=== PATIENT | female | born 1960 | race Caucasian/White ===

== ENCOUNTER 2019-06-11 17:26 | Inpatient (IN) ==
[2019-06-11] MEDS ORDERED: LORazepam 2 MG/1 ML VIAL IV STA (18:29)
[2019-06-11] MEDS ORDERED: THIAMINE INJ 100 MG, FOLIC ACID INJ 1 MG, MAGNESIUM SULF INJ 2 GM, MULTIVITAMIN INJ 10 ... IV ONE (18:29)
[2019-06-11] MEDS ORDERED: LORazepam 2 MG/1 ML VIAL ONE (18:46)
[2019-06-11 18:57] LABS: ABG HCO3 14.3 MMOL/L (20-26); ABG Oxygen Saturation 96.4 % (95-100); ABG PCO2 44.3 MM HG (35-48); ABG TCO2 14.6 MMOL/L (23-27)
[2019-06-11 19:00] LABS: ABG PH 7.154 (7.35-7.45)
[2019-06-11] MEDS ORDERED: SODIUM BICARBONATE 50 MEQ/50 ML VIAL IV STA (19:01)
[2019-06-11] MEDS ORDERED: DEXTROSE 50% 25 GM/50 ML SYRINGE IV ONE ×2 (20:01→21:58)
[2019-06-11 20:04] LABS: Basophils % 0.2 % (0.0-0.8); Eosinophils # 0.1 10*3/uL (0.0-0.87); Hematocrit 29.5 VOL% (35.7-47.0); Hemoglobin 9.5 GM/DL (12.0-16.0); Immature Granulocytes % 0.5 %; Immature Granulocytes Absolute 0.06 #; Lymphocytes # 1.9 10*3/uL (1.4-4.0); Lymphocytes % 15.5 % (21.3-54.2); Mean Corpuscular HGB Conc 32.2 GM/DL (32-36); Mean Corpuscular Volume 85.3 FL (87-102); Mean Platelet Volume 12.2 FL (9.6-12.0); Neutrophils % 69.8 % (38.7-73.9); Platelet Count 308 T/CUMM (130-400); Red Blood Count 3.46 MC/CUMM (3.8-5.5); Red Cell Distribution Width 16.6 % (9.3-17.3); White Blood Count 12.4 T/CUMM (4-12)
[2019-06-11] MEDS ORDERED: NOREPINEPHRINE 4 MG/4 ML VIAL IV ONE (20:23)
[2019-06-11] MEDS: NOREPINEPHRINE 8 MG in SODIUM CHLORIDE 0.9% 242 ML IV PRN (20:41)
[2019-06-11] MEDS ORDERED: DEXTROSE 50% 25 GM/50 ML VIAL IV STA ×2 (20:43→22:13)
[2019-06-11] MEDS ORDERED: VECURONIUM 10 MG VIAL IV STA (20:45)
[2019-06-11] MEDS ORDERED: SODIUM CHLORIDE 0.9% 1,000 ML IV STA ×2 (20:45→21:00)
[2019-06-11] MEDS ORDERED: PIPERACILLIN/TAZOBACTAM 3,375 MG in SODIUM CHLORIDE 0.9% 100 ML IV STA (20:45)
[2019-06-11] MEDS ORDERED: ETOMIDATE 20 MG/10 ML VIAL IV STA (20:45)
[2019-06-11 20:55] LABS: Alanine Aminotransferase < 9 U/L (13-56); Albumin 2.2 G/DL (3.4-5.0); Alkaline Phosphatase 60 U/L (45-117); Aspartate Amino Transferase 9 U/L (0-37); Blood Urea Nitrogen 77 MG/DL (7-18); Calcium 7.5 MG/DL (8.5-10.1); Estimated Glom Filtration Rate 8 ML/MIN; Glucose 194 MG/DL (74-106); Osmolality,Calculated 278.5 MOS/KG (273-304); Total Protein 6.1 G/DL (6.4-8.3); Troponin I < 0.015 NG/ML (0.00-0.045)
[2019-06-11 20:55] LABS: Barbiturates Screen,Urine Negative (Negative); Benzodiazepines Screen,Urine Negative (Negative); Cannabinoid Screen,Urine Positive (Negative); Opiate Screen,Urine Positive (Negative); Phencyclidine Screen,Urine Negative (Negative)
[2019-06-11 21:03] LABS: Apearance,Urine CLOUDY (Clear); Bacteria,Urine Few /HPF (Few); Bilirubin,Urine Negative (Negative); Blood, Urine Moderate mg/dL (Negative); Glucose,Urine (UA) Negative (Negative); Ketones,Urine 5 mg/dL (Negative); Nitrite,Urine Negative (Negative); Protein,Urine 100 MG/DL; RBC,Urine 10 /HPF (0-4); Squamous Epithelial Cell,Urine Occasional /HPF (0-10); Urine Color Amber (Yellow); Urine Specific Gravity 1.019 (1.001-1.035); Urine Urobilinogen < 2.0 EU/DL (0.2-1.0); WBC,Urine 5 /HPF (0-6)
[2019-06-11 21:25] LABS: ABG Base Excess -8.7 MMOL/L (-2.5-2.5); ABG HCO3 17.4 MMOL/L (20-26); ABG Oxygen Saturation 99.1 % (95-100); ABG PCO2 30.3 MM HG (35-48); ABG PH 7.336 (7.35-7.45)
[2019-06-11 21:58] LABS: Alanine Aminotransferase < 9 U/L (13-56); Albumin 2.4 G/DL (3.4-5.0); Alkaline Phosphatase 76 U/L (45-117); Aspartate Amino Transferase 10 U/L (0-37); Blood Urea Nitrogen 81 MG/DL (7-18); Estimated Glom Filtration Rate 7 ML/MIN; Glucose 94 MG/DL (74-106); Osmolality,Calculated 278.2 MOS/KG (273-304); Total Protein 6.9 G/DL (6.4-8.3)
[2019-06-11] MEDS ORDERED: ALBUTEROL 2.5 MG/3 ML NEB RESP TX PRN (22:20)
[2019-06-11] MEDS ORDERED: ONDANSETRON 4 MG/2 ML VIAL IV PRN (22:20)
[2019-06-11] MEDS ORDERED: PROMETHAZINE 25 MG/1 ML VIAL IM PRN (22:20)
[2019-06-11] MEDS ORDERED: DEXTROSE 50% 25 GM/50 ML VIAL IV PRN (22:27)
[2019-06-11] MEDS ORDERED: GLUCAGON 1 MG VIAL IM PRN (22:27)
[2019-06-11] MEDS: SODIUM CHLORIDE 0.9% 1,000 ML IV SCH (22:30)
[2019-06-11] MEDS: DEXTROSE 10% 1,000 ML IV SCH (22:30)
[2019-06-11 23:16] LABS: Alanine Aminotransferase < 9 U/L (13-56); Albumin 2.3 G/DL (3.4-5.0); Alkaline Phosphatase 65 U/L (45-117); Aspartate Amino Transferase 7 U/L (0-37); Blood Urea Nitrogen 73 MG/DL (7-18); Calcium 7.7 MG/DL (8.5-10.1); Estimated Glom Filtration Rate 8 ML/MIN; Glucose 144 MG/DL (74-106); Osmolality,Calculated 281.1 MOS/KG (273-304); Total Protein 6.3 G/DL (6.4-8.3)
[2019-06-12] MEDS ORDERED: NOREPINEPHRINE 4 MG/4 ML VIAL IV ONE ×2 (00:27→00:29)
[2019-06-12] MEDS: NOREPINEPHRINE 8 MG in SODIUM CHLORIDE 0.9% 242 ML IV PRN ×2 (00:32→17:38)
[2019-06-12] MEDS ORDERED: LORazepam 2 MG/1 ML VIAL IV ONE (01:03)
[2019-06-12] MEDS ORDERED: LORazepam 2 MG/1 ML VIAL ONE (01:08)
[2019-06-12] MEDS: ALBUTEROL/IPRATROPIUM 3 ML NEB RESP TX SCH ×4 (01:12→19:40)
[2019-06-12 03:23] LABS: ABG Base Excess -9.1 MMOL/L (-2.5-2.5); ABG HCO3 17.1 MMOL/L (20-26); ABG Oxygen Saturation 99.3 % (95-100); ABG PCO2 23.9 MM HG (35-48); ABG PH 7.393 (7.35-7.45); ABG TCO2 13.3 MMOL/L (23-27); Allen Test Negative; Pt O2 Delivery Device Ventilator
[2019-06-12] MEDS ORDERED: PHENTOLAMINE 5 MG VIAL INFILTRAT ONE (03:30)
[2019-06-12 04:47] LABS: Basophils % 0.3 % (0.0-0.8); Eosinophils # 0.1 10*3/uL (0.0-0.87); Eosinophils % 1.1 % (0.00-10.9); Hematocrit 29.2 VOL% (35.7-47.0); Hemoglobin 9.7 GM/DL (12.0-16.0); Immature Granulocytes % 0.4 %; Immature Granulocytes Absolute 0.04 #; Lymphocytes # 1.2 10*3/uL (1.4-4.0); Mean Corpuscular HGB Conc 33.2 GM/DL (32-36); Mean Corpuscular Volume 84.4 FL (87-102); Mean Platelet Volume 12.4 FL (9.6-12.0); Neutrophils % 72.2 % (38.7-73.9); Platelet Count 261 T/CUMM (130-400); Red Blood Count 3.46 MC/CUMM (3.8-5.5); Red Cell Distribution Width 16.2 % (9.3-17.3); White Blood Count 9.4 T/CUMM (4-12)
[2019-06-12 05:15] LABS: Albumin 2.2 G/DL (3.4-5.0); Bilirubin,Total 2.1 MG/DL (0.2-1.0); Calcium 7.9 MG/DL (8.5-10.1); Osmolality,Calculated 278.9 MOS/KG (273-304); Total Protein 6.3 G/DL (6.4-8.3)
[2019-06-12] MEDS ORDERED: TERBUTALINE 1 MG/1 ML VIAL SUBCUT ONE ×2 (05:56→06:26)
[2019-06-12] MEDS ORDERED: PIPERACILLIN/TAZOBACTAM 3,375 MG in SODIUM CHLORIDE 0.9% 100 ML IV SCH (06:30)
[2019-06-12] MEDS: DEXTROSE 10% 1,000 ML IV SCH ×2 (07:14→20:05)
[2019-06-12] MEDS: SODIUM CHLORIDE 0.9% 1,000 ML IV SCH ×2 (09:02→17:04)
[2019-06-12] MEDS: HYDROCORTISONE 100 MG VIAL IV SCH ×3 (09:03→20:04)
[2019-06-12] MEDS: PANTOPRAZOLE 40 MG VIAL IV SCH (09:05)
[2019-06-12] MEDS ORDERED: LORazepam 2 MG/1 ML VIAL IV STA (13:00)
[2019-06-12] MEDS ORDERED: PHENYTOIN INJ 1,000 MG in SODIUM CHLORIDE 0.9% 100 ML IV ONE (14:00)
[2019-06-12] MEDS: DIAZEPAM 10 MG/2 ML SYRINGE IV SCH ×2 (16:03→20:04)
[2019-06-12] MEDS: SODIUM BICARB INJ 100 MEQ in SODIUM CHLORIDE 0.45% 1,000 ML IV SCH (17:05)
[2019-06-12] MEDS: PIPERACILLIN/TAZOBACTAM 3,375 MG in SODIUM CHLORIDE 0.9% 100 ML IV SCH (17:11)
[2019-06-12] MEDS ORDERED: INFLUENZA VIRUS VACCINE 0.5 ML SYRINGE IM ONE (18:00)
[2019-06-12] MEDS ORDERED: PHENYTOIN 100 MG/2 ML VIAL IV SCH (21:00)
[2019-06-13] MEDS: ALBUTEROL/IPRATROPIUM 3 ML NEB RESP TX SCH ×4 (01:18→19:33)
[2019-06-13] MEDS: SODIUM BICARB INJ 100 MEQ in SODIUM CHLORIDE 0.45% 1,000 ML IV SCH ×3 (02:12→20:25)
[2019-06-13] MEDS: HYDROCORTISONE 100 MG VIAL IV SCH ×4 (02:13→17:31)
[2019-06-13] MEDS: DIAZEPAM 10 MG/2 ML SYRINGE IV SCH ×4 (04:07→20:24)
[2019-06-13 05:02] LABS: ABG Base Excess -2.4 MMOL/L (-2.5-2.5); ABG HCO3 18.7 MMOL/L (20-26); ABG Oxygen Saturation 98.1 % (95-100); ABG PCO2 21.9 MM HG (35-48); ABG PO2 113.7 MM HG (80-95); ABG TCO2 19.4 MMOL/L (23-27)
[2019-06-13 05:14] LABS: Hematocrit 23.5 VOL% (35.7-47.0); Hemoglobin 8.2 GM/DL (12.0-16.0); Immature Granulocytes % 1.5 %; Immature Granulocytes Absolute 0.07 #; Lymphocytes # 0.5 10*3/uL (1.4-4.0); Lymphocytes % 9.6 % (21.3-54.2); Mean Corpuscular HGB Conc 34.9 GM/DL (32-36); Mean Corpuscular Volume 79.9 FL (87-102); Mean Platelet Volume 12.2 FL (9.6-12.0); Monocytes % 5.8 % (1.7-12.7); Neutrophils % 83.1 % (38.7-73.9); Platelet Count 241 T/CUMM (130-400); Red Blood Count 2.94 MC/CUMM (3.8-5.5); Red Cell Distribution Width 15.8 % (9.3-17.3); White Blood Count 4.8 T/CUMM (4-12)
[2019-06-13 05:24] LABS: Calcium 8.6 MG/DL (8.5-10.1)
[2019-06-13] MEDS ORDERED: DEXTROSE 50% 25 GM/50 ML VIAL IV PRN (08:35)
[2019-06-13] MEDS ORDERED: GLUCAGON 1 MG VIAL IM PRN (08:35)
[2019-06-13] MEDS: PANTOPRAZOLE 40 MG VIAL IV SCH (09:18)
[2019-06-13] MEDS: POTASSIUM CHLORIDE 20 MEQ/15 ML UDCUP PER TUBE SCH ×3 (09:19→17:31)
[2019-06-13] MEDS: PIPERACILLIN/TAZOBACTAM 3,375 MG in SODIUM CHLORIDE 0.9% 100 ML IV SCH ×3 (09:30→20:24)
[2019-06-13] MEDS: DEXTROSE 10% 1,000 ML IV SCH (17:25)
[2019-06-14] MEDS: ALBUTEROL/IPRATROPIUM 3 ML NEB RESP TX SCH ×4 (00:18→19:45)
[2019-06-14] MEDS: SODIUM BICARB INJ 100 MEQ in SODIUM CHLORIDE 0.45% 1,000 ML IV SCH ×2 (00:31→13:58)
[2019-06-14] MEDS: HYDROCORTISONE 100 MG VIAL IV SCH (01:35)
[2019-06-14] MEDS: DIAZEPAM 10 MG/2 ML SYRINGE IV SCH (03:11)
[2019-06-14 04:11] LABS: ABG Base Excess 3.8 MMOL/L (-2.5-2.5); ABG HCO3 27.7 MMOL/L (20-26); ABG Oxygen Saturation 94.5 % (95-100); ABG PCO2 37.7 MM HG (35-48); ABG PH 7.471 (7.35-7.45); ABG PO2 70.8 MM HG (80-95); ABG TCO2 25.3 MMOL/L (23-27)
[2019-06-14 04:37] LABS: Basophils % 0.1 % (0.0-0.8); Hematocrit 25.9 VOL% (35.7-47.0); Hemoglobin 8.7 GM/DL (12.0-16.0); Immature Granulocytes % 0.8 %; Immature Granulocytes Absolute 0.06 #; Lymphocytes # 0.9 10*3/uL (1.4-4.0); Lymphocytes % 11.9 % (21.3-54.2); Mean Corpuscular HGB Conc 33.6 GM/DL (32-36); Mean Corpuscular Volume 82.5 FL (87-102); Mean Platelet Volume 11.6 FL (9.6-12.0); Monocytes % 10.5 % (1.7-12.7); Neutrophils % 76.7 % (38.7-73.9); Platelet Count 252 T/CUMM (130-400); Red Blood Count 3.14 MC/CUMM (3.8-5.5); Red Cell Distribution Width 15.6 % (9.3-17.3); White Blood Count 7.4 T/CUMM (4-12)
[2019-06-14 05:04] LABS: Calcium 8.7 MG/DL (8.5-10.1); Osmolality,Calculated 294.5 MOS/KG (273-304)
[2019-06-14] MEDS ORDERED: MAGNESIUM SULF RIDER 2 GM in PREMIX 1 EACH IV ONE (08:08)
[2019-06-14] MEDS ORDERED: NIFEdipine 10 MG CAPSULE PO PRN (08:10)
[2019-06-14] MEDS ORDERED: INSULIN LISPRO 100 UNIT/ML ONE (09:15)
[2019-06-14] MEDS: PREGABALIN 100 MG CAPSULE PO SCH ×2 (09:54→20:05)
[2019-06-14] MEDS: CYANOCOBALAMIN 500 MCG TABLET PO SCH (09:54)
[2019-06-14] MEDS: amLODIPine 10 MG TABLET PO SCH (09:55)
[2019-06-14] MEDS: PANTOPRAZOLE 40 MG TABLET PO SCH (09:56)
[2019-06-14] MEDS: INSULIN LISPRO 100 UNIT/ML SUBCUT SCH ×4 (09:58→23:51)
[2019-06-14] MEDS: PIPERACILLIN/TAZOBACTAM 3,375 MG in SODIUM CHLORIDE 0.9% 100 ML IV SCH ×2 (10:00→20:15)
[2019-06-14] MEDS: SODIUM CHLORIDE 0.9% 1,000 ML IV SCH ×2 (10:00→20:04)
[2019-06-14] MEDS: ROSUVASTATIN 20 MG TABLET PO SCH (20:05)
[2019-06-14] MEDS: HYDROCORTISONE 10 MG TABLET PO SCH (20:05)
[2019-06-15 06:11] LABS: Basophils % 0.2 % (0.0-0.8); Eosinophils % 0.4 % (0.00-10.9); Hematocrit 26.9 VOL% (35.7-47.0); Hemoglobin 8.6 GM/DL (12.0-16.0); Immature Granulocytes % 1.8 %; Immature Granulocytes Absolute 0.15 #; Lymphocytes # 1.5 10*3/uL (1.4-4.0); Lymphocytes % 17.4 % (21.3-54.2); Mean Corpuscular Volume 85.9 FL (87-102); Mean Platelet Volume 12.1 FL (9.6-12.0); Neutrophils % 69.2 % (38.7-73.9); Platelet Count 270 T/CUMM (130-400); Red Blood Count 3.13 MC/CUMM (3.8-5.5); Red Cell Distribution Width 16.1 % (9.3-17.3); White Blood Count 8.4 T/CUMM (4-12)
[2019-06-15 06:23] LABS: Calcium 8.6 MG/DL (8.5-10.1); Osmolality,Calculated 285.7 MOS/KG (273-304)
[2019-06-15] MEDS: SODIUM CHLORIDE 0.9% 1,000 ML IV SCH ×3 (06:27→23:55)
[2019-06-15] MEDS: ALBUTEROL/IPRATROPIUM 3 ML NEB RESP TX SCH ×2 (07:32→19:37)
[2019-06-15] MEDS: INSULIN LISPRO 100 UNIT/ML SUBCUT SCH ×4 (08:23→21:02)
[2019-06-15] MEDS: PIPERACILLIN/TAZOBACTAM 3,375 MG in SODIUM CHLORIDE 0.9% 100 ML IV SCH ×2 (08:28→21:01)
[2019-06-15] MEDS: HYDROCORTISONE 10 MG TABLET PO SCH ×2 (08:29→21:01)
[2019-06-15] MEDS: PANTOPRAZOLE 40 MG TABLET PO SCH (08:29)
[2019-06-15] MEDS: CYANOCOBALAMIN 500 MCG TABLET PO SCH (08:29)
[2019-06-15] MEDS: PREGABALIN 100 MG CAPSULE PO SCH ×2 (08:30→21:02)
[2019-06-15] MEDS: amLODIPine 10 MG TABLET PO SCH (08:30)
[2019-06-15] MEDS: ROSUVASTATIN 20 MG TABLET PO SCH (21:02)
[2019-06-16 04:47] LABS: Basophils % 0.2 % (0.0-0.8); Eosinophils % 0.4 % (0.00-10.9); Hematocrit 26.8 VOL% (35.7-47.0); Hemoglobin 8.5 GM/DL (12.0-16.0); Immature Granulocytes Absolute 0.39 #; Lymphocytes # 1.7 10*3/uL (1.4-4.0); Lymphocytes % 16.8 % (21.3-54.2); Mean Corpuscular HGB Conc 31.7 GM/DL (32-36); Mean Corpuscular Volume 86.2 FL (87-102); Mean Platelet Volume 11.9 FL (9.6-12.0); Monocytes % 9.4 % (1.7-12.7); Neutrophils % 69.2 % (38.7-73.9); Platelet Count 269 T/CUMM (130-400); Red Blood Count 3.11 MC/CUMM (3.8-5.5); Red Cell Distribution Width 15.9 % (9.3-17.3); White Blood Count 9.9 T/CUMM (4-12)
[2019-06-16 05:55] LABS: Calcium 7.9 MG/DL (8.5-10.1); Osmolality,Calculated 288.3 MOS/KG (273-304)
[2019-06-16] MEDS: ALBUTEROL/IPRATROPIUM 3 ML NEB RESP TX SCH (08:16)
[2019-06-16] MEDS ORDERED: MAGNESIUM SULF RIDER 2 GM in PREMIX 1 EACH IV PRN (08:32)
[2019-06-16] MEDS ORDERED: MAGNESIUM SULF RIDER 4 GM in PREMIX 1 EACH IV PRN (08:32)
[2019-06-16] MEDS: INSULIN LISPRO 100 UNIT/ML SUBCUT SCH ×2 (08:40→12:53)
[2019-06-16] MEDS ORDERED: diphenhydrAMINE CAP 25 MG CAPSULE PO ONE (08:56)
[2019-06-16] MEDS: HYDROCORTISONE 10 MG TABLET PO SCH (09:22)
[2019-06-16] MEDS: PREGABALIN 100 MG CAPSULE PO SCH (09:22)
[2019-06-16] MEDS: amLODIPine 10 MG TABLET PO SCH (09:23)
[2019-06-16] MEDS: PANTOPRAZOLE 40 MG TABLET PO SCH (09:23)
[2019-06-16] MEDS: CYANOCOBALAMIN 500 MCG TABLET PO SCH (09:23)
[2019-06-16] MEDS: SODIUM CHLORIDE 0.9% 1,000 ML IV SCH (09:24)
[2019-06-16] MEDS: PIPERACILLIN/TAZOBACTAM 3,375 MG in SODIUM CHLORIDE 0.9% 100 ML IV SCH (09:24)
[2019-06-16] MEDS: POTASSIUM CHLORIDE 20 MEQ TABLET PO PRN ×3 (09:25→13:15)
[2019-06-16] MEDS ORDERED: levETIRAcetam 250 MG TABLET PO SCH (12:44)
[2019-06-16 16:03] VITALS: BP 149/68
[2019-06-16] MEDS ORDERED: MAGNESIUM OXIDE 400 MG TABLET PO SCH (21:00)
[2019-06-17] MEDS ORDERED: POTASSIUM CHLORIDE 20 MEQ TABLET PO SCH (09:00)
== END 2019-06-16 16:44 | disposition home or self-care (01) | DRG 775 ==
LOC: EDUNIT# → EDBD → N.ED 17:26 → N.EDINP 22:20 → SUATTDRO 22:20 → N.CC 23:41 → N.5E 06-14 14:44
PROVIDERS: ADMIT Internal Medicine; ATTEND Hospitalist

== ENCOUNTER 2019-11-16 06:36 | Inpatient (IN) ==
[2019-11-16] MEDS ORDERED: methylPREDNISolone SOD SUC 40 MG/1 ML VIAL IV STA (07:04)
[2019-11-16] MEDS ORDERED: LEVOFLOXACIN INJ 750 MG in PREMIX 1 EACH IV STA (07:08)
[2019-11-16] MEDS ORDERED: ALBUTEROL 2.5 MG/3 ML NEB RESP TX STA (07:12)
[2019-11-16 07:28] LABS: Basophils % 0.2 % (0.0-0.8); Eosinophils % 0.2 % (0.00-10.9); Hematocrit 37.7 VOL% (35.7-47.0); Immature Granulocytes % 0.4 %; Immature Granulocytes Absolute 0.02 #; Lymphocytes # 0.8 10*3/uL (1.4-4.0); Mean Corpuscular HGB Conc 29.7 GM/DL (32-36); Mean Corpuscular Volume 80.7 FL (87-102); Mean Platelet Volume 12.2 FL (9.6-12.0); Monocytes % 2.6 % (1.7-12.7); Neutrophils % 81.6 % (38.7-73.9); Platelet Count 262 T/CUMM (130-400); Red Blood Count 4.67 MC/CUMM (3.8-5.5); Red Cell Distribution Width 21.6 % (9.3-17.3); White Blood Count 5.1 T/CUMM (4-12)
[2019-11-16] MEDS ORDERED: VANCOMYCIN INJ 1,250 MG in SODIUM CHLORIDE 0.9% 250 ML IV STA (07:36)
[2019-11-16 07:40] LABS: PT Patient Result 11.2 SECS (9.8-11.9)
[2019-11-16 07:48] LABS: Hemoglobin 11.2 GM/DL (12.0-16.0)
[2019-11-16] MEDS ORDERED: SODIUM CHLORIDE 0.9% 500 ML IV STA (07:54)
[2019-11-16 08:03] LABS: Alanine Aminotransferase 29 U/L (13-56); Albumin 2.6 G/DL (3.4-5.0); Alkaline Phosphatase 95 U/L (45-117); Aspartate Amino Transferase 83 U/L (0-37); Blood Urea Nitrogen 8 MG/DL (7-18); Calcium 8.7 MG/DL (8.5-10.1); Estimated Glom Filtration Rate 109 ML/MIN; Glucose 107 MG/DL (74-106); Osmolality,Calculated 274.5 MOS/KG (273-304); Total Protein 7.9 G/DL (6.4-8.3)
[2019-11-16 08:31] LABS: Band Neutrophils 1 % (0-10); Hypochromasia 1+; Lymphocytes 18 % (20-55); Platelet Estimate Adequate; Segmented Neutrophils 79 % (50-85); Total Cells Counted 100
[2019-11-16 08:47] LABS: Sedimentation Rate-Westergren 66 MM/HR (0-30)
[2019-11-16 09:10] LABS: Barbiturates Screen,Urine Negative (Negative); Benzodiazepines Screen,Urine Negative (Negative); Cannabinoid Screen,Urine Negative (Negative); Opiate Screen,Urine Positive (Negative); Phencyclidine Screen,Urine Negative (Negative)
[2019-11-16] MEDS ORDERED: ALBUTEROL 2.5 MG/3 ML NEB RESP TX PRN (09:11)
[2019-11-16] MEDS ORDERED: ONDANSETRON 4 MG/2 ML VIAL IV PRN (09:11)
[2019-11-16 09:21] LABS: ABG Base Excess -1.8 MMOL/L (-2.5-2.5); ABG HCO3 22.7 MMOL/L (20-26); ABG Oxygen Saturation 87.3 % (95-100); ABG PCO2 35.8 MM HG (35-48); ABG PH 7.405 (7.35-7.45); ABG PO2 59.7 MM HG (80-95); ABG TCO2 20.4 MMOL/L (23-27)
[2019-11-16] MEDS: cefTRIAXone 2,000 MG in SYRINGE 1 EACH IV SCH ×2 (11:02→23:56)
[2019-11-16] MEDS: PANTOPRAZOLE 40 MG TABLET PO SCH (11:02)
[2019-11-16] MEDS ORDERED: ENOXAPARIN 120 MG/0.8 ML SYRINGE SUBCUT ONE (14:11)
[2019-11-16] MEDS ORDERED: DEXAMETHASONE INJ 6 MG in SODIUM CHLORIDE 0.9% 50 ML IV SCH (14:30)
[2019-11-16] MEDS: amLODIPine 10 MG TABLET PO SCH (15:26)
[2019-11-16] MEDS: DEXAMETHASONE 4 MG/1 ML VIAL IV SCH (15:26)
[2019-11-16] MEDS: PREGABALIN 100 MG CAPSULE PO SCH (20:14)
[2019-11-16] MEDS: MAGNESIUM OXIDE 400 MG TABLET PO SCH (20:14)
[2019-11-16] MEDS: DIAZEPAM 5 MG TABLET PO PRN (20:14)
[2019-11-16] MEDS ORDERED: LORazepam 2 MG/1 ML VIAL IV ONE (20:16)
[2019-11-17] MEDS: DIAZEPAM 5 MG TABLET PO PRN (01:02)
[2019-11-17] MEDS ORDERED: ETOMIDATE 20 MG/10 ML VIAL IV ONE ×2 (03:50→04:00)
[2019-11-17] MEDS ORDERED: ROCURONIUM 100 MG/10 ML VIAL IV ONE ×2 (03:51→04:01)
[2019-11-17] MEDS ORDERED: METOPROLOL TARTRATE 5 MG/5 ML VIAL IV ONE ×2 (04:53→04:54)
[2019-11-17 04:58] LABS: ABG HCO3 21.7 MMOL/L (20-26); ABG Oxygen Saturation 88.8 % (95-100); ABG PH 7.248 (7.35-7.45); ABG PO2 71.7 MM HG (80-95)
[2019-11-17 05:49] LABS: Basophils % 0.1 % (0.0-0.8); Hematocrit 37.5 VOL% (35.7-47.0); Hemoglobin 11.2 GM/DL (12.0-16.0); Immature Granulocytes % 0.7 %; Immature Granulocytes Absolute 0.08 #; Mean Corpuscular HGB Conc 29.9 GM/DL (32-36); Mean Corpuscular Volume 81.2 FL (87-102); Monocytes % 6.3 % (1.7-12.7); NRBC # 0.03 10*3/uL; Neutrophils % 83.9 % (38.7-73.9); Platelet Count 339 T/CUMM (130-400); Red Blood Count 4.62 MC/CUMM (3.8-5.5); Red Cell Distribution Width 21.3 % (9.3-17.3); White Blood Count 11.2 T/CUMM (4-12)
[2019-11-17] MEDS: MIDAZOLAM 100 MG in SODIUM CHLORIDE 0.9% 80 ML IV PRN ×2 (05:50→16:11)
[2019-11-17 06:18] LABS: Hypochromasia 1+; Platelet Estimate Adequate
[2019-11-17 06:20] LABS: Osmolality,Calculated 279.5 MOS/KG (273-304)
[2019-11-17 06:35] LABS: ABG Base Excess -2.7 MMOL/L (-2.5-2.5); ABG HCO3 22.8 MMOL/L (20-26); ABG Oxygen Saturation 93.8 % (95-100); ABG PH 7.352 (7.35-7.45); ABG PO2 80.2 MM HG (80-95); ABG TCO2 24.1 MMOL/L (23-27)
[2019-11-17] MEDS: chlordiazePOXIDE 25 MG CAPSULE PO SCH ×4 (08:10→20:44)
[2019-11-17] MEDS: MAGNESIUM OXIDE 400 MG TABLET PO SCH ×2 (08:11→20:14)
[2019-11-17] MEDS: DEXAMETHASONE 4 MG/1 ML VIAL IV SCH (08:11)
[2019-11-17] MEDS: amLODIPine 10 MG TABLET PO SCH (08:11)
[2019-11-17] MEDS: PREGABALIN 100 MG CAPSULE PO SCH ×2 (08:11→20:14)
[2019-11-17] MEDS: PANTOPRAZOLE 40 MG TABLET PO SCH (08:12)
[2019-11-17] MEDS ORDERED: chlordiazePOXIDE 10 MG CAPSULE PO SCH (09:00)
[2019-11-17] MEDS ORDERED: DIGOXIN 0.5 MG/2 ML AMP IV ONE ×2 (09:06→10:30)
[2019-11-17] MEDS: cefTRIAXone 2,000 MG in SYRINGE 1 EACH IV SCH (10:08)
[2019-11-17] MEDS: ENOXAPARIN 100 MG/ML SYRINGE SUBCUT SCH ×2 (13:42→21:34)
[2019-11-17] MEDS: INSULIN LISPRO 100 UNIT/ML SUBCUT SCH ×2 (13:42→18:15)
[2019-11-17] MEDS: fentaNYL INJ 1,250 MCG in SODIUM CHLORIDE 0.9% 225 ML IV PRN (13:43)
[2019-11-18] MEDS: INSULIN LISPRO 100 UNIT/ML SUBCUT SCH ×4 (00:37→19:53)
[2019-11-18] MEDS: MIDAZOLAM 100 MG in SODIUM CHLORIDE 0.9% 80 ML IV PRN ×2 (00:49→20:02)
[2019-11-18] MEDS: fentaNYL INJ 1,250 MCG in SODIUM CHLORIDE 0.9% 225 ML IV PRN ×2 (00:50→12:35)
[2019-11-18] MEDS: cefTRIAXone 2,000 MG in SYRINGE 1 EACH IV SCH ×2 (01:12→13:50)
[2019-11-18 03:52] LABS: ABG Base Excess 0.7 MMOL/L (-2.5-2.5); ABG HCO3 25.1 MMOL/L (20-26); ABG Oxygen Saturation 99.3 % (95-100); ABG PCO2 37.7 MM HG (35-48); ABG PH 7.427 (7.35-7.45); ABG TCO2 22.8 MMOL/L (23-27)
[2019-11-18 05:14] LABS: Immature Granulocytes % 0.3 %; Immature Granulocytes Absolute 0.01 #; Lymphocytes # 0.6 10*3/uL (1.4-4.0); Lymphocytes % 16.4 % (21.3-54.2); Mean Corpuscular Volume 79.2 FL (87-102); Mean Platelet Volume 12.9 FL (9.6-12.0); Monocytes % 7.8 % (1.7-12.7); Neutrophils % 75.5 % (38.7-73.9); Red Cell Distribution Width 20.2 % (9.3-17.3)
[2019-11-18 05:29] LABS: Calcium 8.8 MG/DL (8.5-10.1); Osmolality,Calculated 282.5 MOS/KG (273-304)
[2019-11-18 05:39] LABS: Platelet Count 248 T/CUMM (130-400); Red Blood Count 3.66 MC/CUMM (3.8-5.5); White Blood Count 3.7 T/CUMM (4-12)
[2019-11-18 05:57] LABS: Band Neutrophils 1 % (0-10); Hypochromasia 1+; Lymphocytes 10 % (20-55); Microcytosis 1+; Nucleated Red Blood Cells 1 (0-5); Segmented Neutrophils 84 % (50-85); Total Cells Counted 100
[2019-11-18 05:58] LABS: Platelet Estimate Normal
[2019-11-18] MEDS: amLODIPine 10 MG TABLET PO SCH (08:54)
[2019-11-18] MEDS: PREGABALIN 100 MG CAPSULE PO SCH ×2 (08:54→21:47)
[2019-11-18] MEDS: PANTOPRAZOLE 40 MG TABLET PO SCH ×2 (08:54→08:58)
[2019-11-18] MEDS: MAGNESIUM OXIDE 400 MG TABLET PO SCH ×2 (08:54→21:47)
[2019-11-18] MEDS: DEXAMETHASONE 4 MG/1 ML VIAL IV SCH (08:54)
[2019-11-18] MEDS: chlordiazePOXIDE 25 MG CAPSULE PO SCH ×4 (08:59→21:47)
[2019-11-18] MEDS: ENOXAPARIN 100 MG/ML SYRINGE SUBCUT SCH ×2 (08:59→21:47)
[2019-11-18] MEDS: PANTOPRAZOLE 40 MG VIAL IV SCH (12:15)
[2019-11-18] MEDS ORDERED: SODIUM CHLORIDE 0.9% 1,000 ML IV PRN (14:53)
[2019-11-19] MEDS: cefTRIAXone 2,000 MG in SYRINGE 1 EACH IV SCH ×3 (00:29→22:19)
[2019-11-19] MEDS: INSULIN LISPRO 100 UNIT/ML SUBCUT SCH ×4 (01:22→17:40)
[2019-11-19] MEDS: fentaNYL INJ 1,250 MCG in SODIUM CHLORIDE 0.9% 225 ML IV PRN (02:29)
[2019-11-19 03:58] LABS: Hematocrit 29.6 VOL% (35.7-47.0); Hemoglobin 8.8 GM/DL (12.0-16.0); Immature Granulocytes % 0.7 %; Immature Granulocytes Absolute 0.03 #; Lymphocytes # 0.6 10*3/uL (1.4-4.0); Lymphocytes % 13.5 % (21.3-54.2); Mean Corpuscular HGB Conc 29.7 GM/DL (32-36); Mean Corpuscular Volume 80.2 FL (87-102); Mean Platelet Volume 11.6 FL (9.6-12.0); Monocytes % 10.3 % (1.7-12.7); NRBC # 0.02 10*3/uL; Neutrophils % 75.5 % (38.7-73.9); Platelet Count 248 T/CUMM (130-400); Red Blood Count 3.69 MC/CUMM (3.8-5.5); Red Cell Distribution Width 20.1 % (9.3-17.3); White Blood Count 4.3 T/CUMM (4-12)
[2019-11-19 04:29] LABS: Albumin 2.4 G/DL (3.4-5.0); Bilirubin,Total 0.4 MG/DL (0.2-1.0); Calcium 8.8 MG/DL (8.5-10.1); Osmolality,Calculated 285.3 MOS/KG (273-304); Total Protein 6.9 G/DL (6.4-8.3)
[2019-11-19 04:46] LABS: Anisocytosis 1+; Hypochromasia 1+; Microcytosis 1+; Platelet Estimate Normal
[2019-11-19 04:47] LABS: Tear Drop Cells Slight
[2019-11-19 05:10] LABS: Allen Test Positive; Pt O2 Delivery Device Ventilator
[2019-11-19 05:11] LABS: ABG HCO3 27.2 MMOL/L (20-26); ABG Oxygen Saturation 99.3 % (95-100); ABG PCO2 39.5 MM HG (35-48); ABG PH 7.446 (7.35-7.45); ABG TCO2 24.8 MMOL/L (23-27)
[2019-11-19] MEDS: DEXAMETHASONE 4 MG/1 ML VIAL IV SCH (08:28)
[2019-11-19] MEDS: amLODIPine 10 MG TABLET PO SCH (08:29)
[2019-11-19] MEDS: chlordiazePOXIDE 25 MG CAPSULE PO SCH ×4 (08:29→21:12)
[2019-11-19] MEDS: PREGABALIN 100 MG CAPSULE PO SCH ×2 (08:29→21:11)
[2019-11-19] MEDS: MAGNESIUM OXIDE 400 MG TABLET PO SCH ×2 (08:29→21:11)
[2019-11-19] MEDS: PANTOPRAZOLE 40 MG VIAL IV SCH (08:29)
[2019-11-19] MEDS: ENOXAPARIN 100 MG/ML SYRINGE SUBCUT SCH ×2 (09:36→21:10)
[2019-11-19] MEDS: MIDAZOLAM 100 MG in SODIUM CHLORIDE 0.9% 80 ML IV PRN (17:55)
[2019-11-20] MEDS: ACETAMINOPHEN 325 MG TABLET PO PRN (01:20)
[2019-11-20] MEDS: INSULIN LISPRO 100 UNIT/ML SUBCUT SCH ×4 (01:38→18:34)
[2019-11-20 04:51] LABS: Allen Test Positive; Pt O2 Delivery Device Ventilator
[2019-11-20 04:52] LABS: ABG HCO3 28.2 MMOL/L (20-26); ABG Oxygen Saturation 95.3 % (95-100); ABG PCO2 35.8 MM HG (35-48); ABG PH 7.514 (7.35-7.45); ABG PO2 76.5 MM HG (80-95); ABG TCO2 29.3 MMOL/L (23-27)
[2019-11-20 05:29] LABS: Hematocrit 27.5 VOL% (35.7-47.0); Hemoglobin 8.1 GM/DL (12.0-16.0); Immature Granulocytes % 1.5 %; Immature Granulocytes Absolute 0.07 #; Lymphocytes # 0.7 10*3/uL (1.4-4.0); Lymphocytes % 15.3 % (21.3-54.2); Mean Corpuscular HGB Conc 29.5 GM/DL (32-36); Mean Corpuscular Volume 82.3 FL (87-102); Mean Platelet Volume 11.6 FL (9.6-12.0); Monocytes % 14.7 % (1.7-12.7); NRBC # 0.02 10*3/uL; Neutrophils % 68.5 % (38.7-73.9); Platelet Count 221 T/CUMM (130-400); Red Blood Count 3.34 MC/CUMM (3.8-5.5); Red Cell Distribution Width 20.2 % (9.3-17.3); White Blood Count 4.6 T/CUMM (4-12)
[2019-11-20 05:48] LABS: Osmolality,Calculated 291.8 MOS/KG (273-304)
[2019-11-20] MEDS: PANTOPRAZOLE 40 MG VIAL IV SCH (08:27)
[2019-11-20] MEDS: MAGNESIUM OXIDE 400 MG TABLET PO SCH ×2 (08:28→20:31)
[2019-11-20] MEDS: PREGABALIN 100 MG CAPSULE PO SCH ×2 (08:28→20:31)
[2019-11-20] MEDS: amLODIPine 10 MG TABLET PO SCH (08:28)
[2019-11-20] MEDS: chlordiazePOXIDE 25 MG CAPSULE PO SCH ×4 (08:28→20:31)
[2019-11-20] MEDS: DEXAMETHASONE 4 MG/1 ML VIAL IV SCH (08:28)
[2019-11-20] MEDS: ENOXAPARIN 100 MG/ML SYRINGE SUBCUT SCH (10:49)
[2019-11-20] MEDS: cefTRIAXone 2,000 MG in SYRINGE 1 EACH IV SCH (10:49)
[2019-11-20] MEDS ORDERED: FUROSEMIDE 40 MG/4 ML VIAL IV ONE (14:10)
[2019-11-21] MEDS: ENOXAPARIN 100 MG/ML SYRINGE SUBCUT SCH ×2 (00:14→10:06)
[2019-11-21] MEDS: INSULIN LISPRO 100 UNIT/ML SUBCUT SCH ×4 (00:15→17:56)
[2019-11-21 03:54] LABS: ABG Base Excess 7.2 MMOL/L (-2.5-2.5); ABG Oxygen Saturation 96.3 % (95-100); ABG PCO2 41.9 MM HG (35-48); ABG PH 7.482 (7.35-7.45); ABG PO2 83.2 MM HG (80-95); Allen Test Positive; Pt O2 Delivery Device Ventilator
[2019-11-21 06:19] LABS: Basophils % 0.2 % (0.0-0.8); Hematocrit 28.5 VOL% (35.7-47.0); Hemoglobin 8.7 GM/DL (12.0-16.0); Immature Granulocytes % 1.5 %; Immature Granulocytes Absolute 0.09 #; Lymphocytes # 1.3 10*3/uL (1.4-4.0); Lymphocytes % 22.1 % (21.3-54.2); Mean Corpuscular HGB Conc 30.5 GM/DL (32-36); Mean Corpuscular Volume 80.5 FL (87-102); Mean Platelet Volume 11.3 FL (9.6-12.0); Monocytes % 15.2 % (1.7-12.7); Platelet Count 217 T/CUMM (130-400); Red Blood Count 3.54 MC/CUMM (3.8-5.5); Red Cell Distribution Width 20.2 % (9.3-17.3)
[2019-11-21 06:31] LABS: Calcium 8.8 MG/DL (8.5-10.1); Osmolality,Calculated 289.8 MOS/KG (273-304)
[2019-11-21] MEDS: PREGABALIN 100 MG CAPSULE PO SCH ×2 (08:00→21:11)
[2019-11-21] MEDS: POTASSIUM CHLORIDE 20 MEQ/15 ML UDCUP PER TUBE PRN ×3 (08:00→12:41)
[2019-11-21] MEDS: MAGNESIUM OXIDE 400 MG TABLET PO SCH ×2 (08:01→21:11)
[2019-11-21] MEDS: amLODIPine 10 MG TABLET PO SCH (08:01)
[2019-11-21] MEDS: chlordiazePOXIDE 25 MG CAPSULE PO SCH ×4 (08:06→21:11)
[2019-11-21] MEDS: PANTOPRAZOLE 40 MG VIAL IV SCH (08:07)
[2019-11-21] MEDS: DEXAMETHASONE 4 MG/1 ML VIAL IV SCH (08:10)
[2019-11-21] MEDS: MIDAZOLAM 100 MG in SODIUM CHLORIDE 0.9% 80 ML IV PRN (18:00)
[2019-11-21] MEDS ORDERED: METOPROLOL TARTRATE 5 MG/5 ML VIAL IV ONE (22:03)
[2019-11-22] MEDS: ENOXAPARIN 100 MG/ML SYRINGE SUBCUT SCH ×3 (00:10→22:22)
[2019-11-22] MEDS: INSULIN LISPRO 100 UNIT/ML SUBCUT SCH ×4 (00:15→18:57)
[2019-11-22 02:51] LABS: ABG Base Excess 5.7 MMOL/L (-2.5-2.5); ABG HCO3 29.6 MMOL/L (20-26); ABG Oxygen Saturation 96.2 % (95-100); ABG PCO2 42.4 MM HG (35-48); ABG PH 7.459 (7.35-7.45); ABG PO2 84.3 MM HG (80-95); ABG TCO2 27.8 MMOL/L (23-27); Allen Test Positive; Pt O2 Delivery Device Ventilator
[2019-11-22 05:08] LABS: Hematocrit 28.7 VOL% (35.7-47.0); Hemoglobin 8.7 GM/DL (12.0-16.0); Immature Granulocytes % 1.1 %; Lymphocytes # 1.6 10*3/uL (1.4-4.0); Lymphocytes % 17.9 % (21.3-54.2); Mean Corpuscular HGB Conc 30.3 GM/DL (32-36); Mean Corpuscular Volume 80.4 FL (87-102); Mean Platelet Volume 12.1 FL (9.6-12.0); Monocytes % 11.3 % (1.7-12.7); Neutrophils % 69.7 % (38.7-73.9); Platelet Count 225 T/CUMM (130-400); Red Blood Count 3.57 MC/CUMM (3.8-5.5); Red Cell Distribution Width 20.2 % (9.3-17.3); White Blood Count 8.9 T/CUMM (4-12)
[2019-11-22 05:22] LABS: Calcium 8.8 MG/DL (8.5-10.1); Osmolality,Calculated 288.8 MOS/KG (273-304)
[2019-11-22 05:25] LABS: Albumin 2.5 G/DL (3.4-5.0); Bilirubin,Total 0.4 MG/DL (0.2-1.0); Calcium 8.9 MG/DL (8.5-10.1); Total Protein 6.5 G/DL (6.4-8.3)
[2019-11-22 05:27] LABS: Ferritin 36.1 ng/ml (8-252)
[2019-11-22] MEDS: MAGNESIUM OXIDE 400 MG TABLET PO SCH ×2 (08:25→22:22)
[2019-11-22] MEDS: PREGABALIN 100 MG CAPSULE PO SCH ×2 (08:25→22:22)
[2019-11-22] MEDS: amLODIPine 10 MG TABLET PO SCH (08:25)
[2019-11-22] MEDS: DEXAMETHASONE 4 MG/1 ML VIAL IV SCH (08:25)
[2019-11-22] MEDS: PANTOPRAZOLE 40 MG VIAL IV SCH (08:26)
[2019-11-22] MEDS: chlordiazePOXIDE 25 MG CAPSULE PO SCH ×4 (08:29→22:22)
[2019-11-22] MEDS ORDERED: FUROSEMIDE 40 MG/4 ML VIAL IV ONE (09:14)
[2019-11-23] MEDS: INSULIN LISPRO 100 UNIT/ML SUBCUT SCH ×4 (00:33→18:10)
[2019-11-23 05:06] LABS: ABG Base Excess 7.4 MMOL/L (-2.5-2.5); ABG HCO3 31.2 MMOL/L (20-26); ABG PCO2 45.1 MM HG (35-48); ABG TCO2 29.3 MMOL/L (23-27); Allen Test Positive; Pt O2 Delivery Device Ventilator
[2019-11-23 05:52] LABS: Basophils % 0.1 % (0.0-0.8); Eosinophils % 0.1 % (0.00-10.9); Hematocrit 30.6 VOL% (35.7-47.0); Immature Granulocytes % 0.7 %; Immature Granulocytes Absolute 0.06 #; Lymphocytes # 1.8 10*3/uL (1.4-4.0); Lymphocytes % 20.7 % (21.3-54.2); Mean Corpuscular HGB Conc 29.4 GM/DL (32-36); Mean Corpuscular Volume 82.9 FL (87-102); Mean Platelet Volume 11.7 FL (9.6-12.0); Monocytes % 12.9 % (1.7-12.7); NRBC # 0.02 10*3/uL; Neutrophils % 65.5 % (38.7-73.9); Platelet Count 227 T/CUMM (130-400); Red Blood Count 3.69 MC/CUMM (3.8-5.5); Red Cell Distribution Width 20.4 % (9.3-17.3); White Blood Count 8.5 T/CUMM (4-12)
[2019-11-23 06:10] LABS: Calcium 9.1 MG/DL (8.5-10.1); Osmolality,Calculated 284.3 MOS/KG (273-304)
[2019-11-23] MEDS: DEXAMETHASONE 4 MG/1 ML VIAL IV SCH (08:25)
[2019-11-23] MEDS: PREGABALIN 100 MG CAPSULE PO SCH ×2 (08:45→21:00)
[2019-11-23] MEDS: MAGNESIUM OXIDE 400 MG TABLET PO SCH ×2 (08:45→21:00)
[2019-11-23] MEDS: chlordiazePOXIDE 25 MG CAPSULE PO SCH ×4 (08:45→21:00)
[2019-11-23] MEDS: PANTOPRAZOLE 40 MG VIAL IV SCH (08:45)
[2019-11-23] MEDS: ENOXAPARIN 100 MG/ML SYRINGE SUBCUT SCH (08:45)
[2019-11-23] MEDS: amLODIPine 10 MG TABLET PO SCH (08:45)
[2019-11-23] MEDS ORDERED: DEXMEDETOMIDINE 200 MCG in SODIUM CHLORIDE 0.9% 48 ML IV PRN (10:00)
[2019-11-23] MEDS: DEXMEDETOMIDINE 400 MCG in SODIUM CHLORIDE 0.9% 96 ML IV PRN (12:45)
[2019-11-23] MEDS: SODIUM CHLORIDE 0.9% 1,000 ML IV SCH (20:40)
[2019-11-24] MEDS: ENOXAPARIN 100 MG/ML SYRINGE SUBCUT SCH ×4 (02:20→21:49)
[2019-11-24] MEDS: INSULIN LISPRO 100 UNIT/ML SUBCUT SCH ×4 (02:20→18:11)
[2019-11-24 05:00] LABS: ABG Base Excess 7.5 MMOL/L (-2.5-2.5); ABG HCO3 31.3 MMOL/L (20-26); ABG PCO2 47.1 MM HG (35-48); ABG TCO2 28.8 MMOL/L (23-27); Allen Test Positive; Pt O2 Delivery Device Ventilator
[2019-11-24 06:01] LABS: Eosinophils % 0.2 % (0.00-10.9); Hematocrit 30.1 VOL% (35.7-47.0); Hemoglobin 9.1 GM/DL (12.0-16.0); Immature Granulocytes % 0.8 %; Immature Granulocytes Absolute 0.08 #; Lymphocytes % 20.5 % (21.3-54.2); Mean Corpuscular HGB Conc 30.2 GM/DL (32-36); Mean Corpuscular Volume 81.8 FL (87-102); Mean Platelet Volume 12.7 FL (9.6-12.0); Monocytes % 12.5 % (1.7-12.7); Platelet Count 214 T/CUMM (130-400); Red Blood Count 3.68 MC/CUMM (3.8-5.5); Red Cell Distribution Width 20.2 % (9.3-17.3); White Blood Count 9.9 T/CUMM (4-12)
[2019-11-24 06:17] LABS: Calcium 9.2 MG/DL (8.5-10.1)
[2019-11-24] MEDS: PANTOPRAZOLE 40 MG VIAL IV SCH (08:28)
[2019-11-24] MEDS: MAGNESIUM OXIDE 400 MG TABLET PO SCH ×2 (08:29→21:49)
[2019-11-24] MEDS: chlordiazePOXIDE 25 MG CAPSULE PO SCH ×3 (08:29→21:49)
[2019-11-24] MEDS: amLODIPine 10 MG TABLET PO SCH (08:29)
[2019-11-24] MEDS: DEXAMETHASONE 4 MG/1 ML VIAL IV SCH (08:29)
[2019-11-24] MEDS: PREGABALIN 100 MG CAPSULE PO SCH ×2 (08:29→21:49)
[2019-11-24] MEDS: DEXMEDETOMIDINE 400 MCG in SODIUM CHLORIDE 0.9% 96 ML IV PRN (10:19)
[2019-11-24] MEDS: LORazepam 2 MG/1 ML VIAL IV PRN ×2 (13:05→15:34)
[2019-11-24 13:21] LABS: ABG Base Excess 6.7 MMOL/L (-2.5-2.5); ABG HCO3 30.5 MMOL/L (20-26); ABG Oxygen Saturation 95.7 % (95-100); ABG PCO2 46.4 MM HG (35-48); ABG PH 7.442 (7.35-7.45); ABG PO2 80.5 MM HG (80-95); Allen Test Positive; Pt O2 Delivery Device Ventilator
[2019-11-24] MEDS: SODIUM CHLORIDE 0.9% 1,000 ML IV SCH (21:49)
[2019-11-24] MEDS: HYDROmorphone 2 MG/1 ML VIAL IV PRN (22:33)
[2019-11-25] MEDS: INSULIN LISPRO 100 UNIT/ML SUBCUT SCH ×4 (00:41→18:22)
[2019-11-25 04:47] LABS: ABG Base Excess 9.1 MMOL/L (-2.5-2.5); ABG HCO3 32.8 MMOL/L (20-26); ABG Oxygen Saturation 95.3 % (95-100); ABG PCO2 50.2 MM HG (35-48); ABG PH 7.444 (7.35-7.45); ABG PO2 78.8 MM HG (80-95); ABG TCO2 31.9 MMOL/L (23-27); Allen Test Positive; Pt O2 Delivery Device Ventilator
[2019-11-25 06:14] LABS: Basophils % 0.1 % (0.0-0.8); Eosinophils % 0.3 % (0.00-10.9); Hematocrit 27.5 VOL% (35.7-47.0); Hemoglobin 8.1 GM/DL (12.0-16.0); Immature Granulocytes % 0.5 %; Immature Granulocytes Absolute 0.06 #; Lymphocytes % 18.2 % (21.3-54.2); Mean Corpuscular HGB Conc 29.5 GM/DL (32-36); Mean Corpuscular Volume 83.1 FL (87-102); Mean Platelet Volume 12.9 FL (9.6-12.0); Monocytes % 13.4 % (1.7-12.7); Neutrophils % 67.5 % (38.7-73.9); Platelet Count 187 T/CUMM (130-400); Red Blood Count 3.31 MC/CUMM (3.8-5.5); Red Cell Distribution Width 20.1 % (9.3-17.3); White Blood Count 11.1 T/CUMM (4-12)
[2019-11-25 06:43] LABS: Calcium 9.4 MG/DL (8.5-10.1)
[2019-11-25] MEDS: amLODIPine 10 MG TABLET PO SCH (08:15)
[2019-11-25] MEDS: MAGNESIUM OXIDE 400 MG TABLET PO SCH ×2 (08:15→21:18)
[2019-11-25] MEDS: chlordiazePOXIDE 25 MG CAPSULE PO SCH ×2 (08:15→21:18)
[2019-11-25] MEDS: PREGABALIN 100 MG CAPSULE PO SCH ×2 (08:15→21:18)
[2019-11-25] MEDS: PANTOPRAZOLE 40 MG VIAL IV SCH (08:16)
[2019-11-25] MEDS: DEXAMETHASONE 4 MG/1 ML VIAL IV SCH (08:16)
[2019-11-25] MEDS: ACETAMINOPHEN 325 MG TABLET PO PRN (10:16)
[2019-11-25] MEDS: ENOXAPARIN 100 MG/ML SYRINGE SUBCUT SCH ×2 (10:16→22:44)
[2019-11-25] MEDS ORDERED: ETOMIDATE 20 MG/10 ML VIAL IV ONE ×2 (15:14→15:15)
[2019-11-25] MEDS ORDERED: SUCCINYLCHOLINE 200 MG/10 ML VIAL ONE (15:14)
[2019-11-25] MEDS ORDERED: SUCCINYLCHOLINE 200 MG/10 ML VIAL IV ONE (15:15)
[2019-11-25 16:16] LABS: ABG Base Excess 7.1 MMOL/L (-2.5-2.5); ABG Oxygen Saturation 99.3 % (95-100); ABG PCO2 49.8 MM HG (35-48); ABG PH 7.424 (7.35-7.45); Pt O2 Delivery Device Ventilator
[2019-11-26] MEDS: INSULIN LISPRO 100 UNIT/ML SUBCUT SCH ×4 (03:41→17:38)
[2019-11-26] MEDS: SODIUM CHLORIDE 0.9% 1,000 ML IV SCH ×2 (03:44→10:15)
[2019-11-26 04:39] LABS: ABG Base Excess 8.3 MMOL/L (-2.5-2.5); ABG HCO3 32.1 MMOL/L (20-26); ABG PCO2 44.2 MM HG (35-48); ABG PH 7.478 (7.35-7.45); ABG TCO2 30.4 MMOL/L (23-27); Allen Test Positive; Pt O2 Delivery Device Ventilator
[2019-11-26 05:15] LABS: Eosinophils % 0.2 % (0.00-10.9); Immature Granulocytes % 0.5 %; Immature Granulocytes Absolute 0.07 #; Lymphocytes # 1.9 10*3/uL (1.4-4.0); Lymphocytes % 14.4 % (21.3-54.2); Mean Corpuscular HGB Conc 29.6 GM/DL (32-36); Mean Corpuscular Volume 83.9 FL (87-102); Mean Platelet Volume 12.7 FL (9.6-12.0); Neutrophils % 71.9 % (38.7-73.9); Platelet Count 180 T/CUMM (130-400); Red Blood Count 3.22 MC/CUMM (3.8-5.5); Red Cell Distribution Width 20.4 % (9.3-17.3); White Blood Count 12.9 T/CUMM (4-12)
[2019-11-26 05:20] LABS: Calcium 9.2 MG/DL (8.5-10.1)
[2019-11-26] MEDS: PREGABALIN 100 MG CAPSULE PO SCH ×3 (07:57→20:56)
[2019-11-26] MEDS: MAGNESIUM OXIDE 400 MG TABLET PO SCH ×3 (07:58→20:56)
[2019-11-26] MEDS: chlordiazePOXIDE 25 MG CAPSULE PO SCH ×3 (07:58→20:56)
[2019-11-26] MEDS: PANTOPRAZOLE 40 MG VIAL IV SCH ×2 (07:58→09:44)
[2019-11-26] MEDS: amLODIPine 10 MG TABLET PO SCH ×2 (07:58→09:44)
[2019-11-26] MEDS: ACETAMINOPHEN 325 MG TABLET PO PRN ×3 (08:45→18:29)
[2019-11-26] MEDS: ENOXAPARIN 100 MG/ML SYRINGE SUBCUT SCH ×2 (10:15→21:57)
[2019-11-26 14:45] LABS: Apearance,Urine CLEAR (Clear); Bacteria,Urine Occasional /HPF (Few); Bilirubin,Urine Negative (Negative); Blood, Urine Large mg/dL (Negative); Glucose,Urine (UA) Negative (Negative); Ketones,Urine Negative (Negative); Mucus,Urine Occasional /LPF (Occasional); Nitrite,Urine Negative (Negative); Protein,Urine Negative; RBC,Urine 278 /HPF (0-4); Urine Color Yellow (Yellow); Urine Specific Gravity 1.021 (1.001-1.035); Urine Urobilinogen < 2.0 EU/DL (0.2-1.0); WBC,Urine 3 /HPF (0-6)
[2019-11-26] MEDS: LEVOFLOXACIN INJ 750 MG in PREMIX 1 EACH IV SCH (18:36)
[2019-11-26] MEDS: HYDROmorphone 2 MG/1 ML VIAL IV PRN (21:00)
[2019-11-27] MEDS: ACETAMINOPHEN 325 MG TABLET PO PRN ×2 (00:36→04:52)
[2019-11-27] MEDS: INSULIN LISPRO 100 UNIT/ML SUBCUT SCH ×4 (00:37→18:02)
[2019-11-27] MEDS: SODIUM CHLORIDE 0.9% 1,000 ML IV SCH ×2 (03:03→20:18)
[2019-11-27 04:53] LABS: ABG Base Excess 8.3 MMOL/L (-2.5-2.5); ABG HCO3 32.1 MMOL/L (20-26); ABG Oxygen Saturation 98.6 % (95-100); ABG PCO2 46.5 MM HG (35-48); ABG PH 7.461 (7.35-7.45); Allen Test Positive; Pt O2 Delivery Device Ventilator
[2019-11-27 05:22] LABS: Basophils % 0.1 % (0.0-0.8); Eosinophils # 0.1 10*3/uL (0.0-0.87); Eosinophils % 0.8 % (0.00-10.9); Hematocrit 24.9 VOL% (35.7-47.0); Hemoglobin 7.3 GM/DL (12.0-16.0); Immature Granulocytes % 0.5 %; Immature Granulocytes Absolute 0.06 #; Lymphocytes # 1.8 10*3/uL (1.4-4.0); Lymphocytes % 14.2 % (21.3-54.2); Mean Corpuscular HGB Conc 29.3 GM/DL (32-36); Mean Corpuscular Volume 84.1 FL (87-102); Mean Platelet Volume 13.1 FL (9.6-12.0); Monocytes % 11.7 % (1.7-12.7); Neutrophils % 72.7 % (38.7-73.9); Platelet Count 198 T/CUMM (130-400); Red Blood Count 2.96 MC/CUMM (3.8-5.5); Red Cell Distribution Width 20.7 % (9.3-17.3); White Blood Count 12.6 T/CUMM (4-12)
[2019-11-27 05:38] LABS: Calcium 8.9 MG/DL (8.5-10.1); Osmolality,Calculated 277.5 MOS/KG (273-304)
[2019-11-27 05:54] LABS: Hypochromasia 1+
[2019-11-27 05:55] LABS: Anisocytosis 1+; Microcytosis 1+; Platelet Estimate Adequate; Target Cells Few
[2019-11-27] MEDS: LORazepam 2 MG/1 ML VIAL IV PRN (09:06)
[2019-11-27] MEDS: MAGNESIUM OXIDE 400 MG TABLET PO SCH ×2 (09:06→20:17)
[2019-11-27] MEDS: chlordiazePOXIDE 25 MG CAPSULE PO SCH (09:06)
[2019-11-27] MEDS: PREGABALIN 100 MG CAPSULE PO SCH ×2 (09:06→20:17)
[2019-11-27] MEDS: amLODIPine 10 MG TABLET PO SCH (09:06)
[2019-11-27] MEDS: ENOXAPARIN 100 MG/ML SYRINGE SUBCUT SCH ×3 (09:06→23:20)
[2019-11-27] MEDS: methylPREDNISolone SOD SUC 40 MG/1 ML VIAL IV SCH ×2 (09:06→16:25)
[2019-11-27] MEDS: PANTOPRAZOLE 40 MG VIAL IV SCH (09:07)
[2019-11-27] MEDS: DEXMEDETOMIDINE 400 MCG in SODIUM CHLORIDE 0.9% 96 ML IV PRN ×3 (12:05→21:36)
[2019-11-27] MEDS: LEVOFLOXACIN INJ 750 MG in PREMIX 1 EACH IV SCH (18:03)
[2019-11-28] MEDS: methylPREDNISolone SOD SUC 40 MG/1 ML VIAL IV SCH ×3 (00:01→17:49)
[2019-11-28] MEDS: DEXMEDETOMIDINE 400 MCG in SODIUM CHLORIDE 0.9% 96 ML IV PRN ×4 (03:27→21:30)
[2019-11-28 04:46] LABS: ABG Base Excess 7.6 MMOL/L (-2.5-2.5); ABG HCO3 31.4 MMOL/L (20-26); ABG Oxygen Saturation 96.6 % (95-100); ABG PCO2 44.5 MM HG (35-48); ABG PH 7.468 (7.35-7.45); ABG PO2 85.3 MM HG (80-95); ABG TCO2 29.6 MMOL/L (23-27); Allen Test Positive; Pt O2 Delivery Device Ventilator
[2019-11-28 05:09] LABS: Basophils % 0.1 % (0.0-0.8); Hematocrit 26.4 VOL% (35.7-47.0); Hemoglobin 7.8 GM/DL (12.0-16.0); Immature Granulocytes % 0.5 %; Immature Granulocytes Absolute 0.07 #; Lymphocytes # 0.5 10*3/uL (1.4-4.0); Lymphocytes % 3.6 % (21.3-54.2); Mean Corpuscular HGB Conc 29.5 GM/DL (32-36); Mean Corpuscular Volume 84.1 FL (87-102); Monocytes % 2.2 % (1.7-12.7); Neutrophils % 93.6 % (38.7-73.9); Platelet Count 221 T/CUMM (130-400); Red Blood Count 3.14 MC/CUMM (3.8-5.5); Red Cell Distribution Width 21.2 % (9.3-17.3); White Blood Count 12.8 T/CUMM (4-12)
[2019-11-28 05:29] LABS: Calcium 9.6 MG/DL (8.5-10.1); Osmolality,Calculated 286.3 MOS/KG (273-304)
[2019-11-28 05:39] LABS: Hypochromasia 1+; Lymphocytes 1 % (20-55); Segmented Neutrophils 98 % (50-85); Total Cells Counted 100
[2019-11-28 05:40] LABS: Microcytosis 1+; Platelet Estimate Normal
[2019-11-28] MEDS: INSULIN LISPRO 100 UNIT/ML SUBCUT SCH ×4 (06:08→17:50)
[2019-11-28] MEDS: PANTOPRAZOLE 40 MG VIAL IV SCH (08:34)
[2019-11-28] MEDS: ENOXAPARIN 100 MG/ML SYRINGE SUBCUT SCH ×3 (08:34→23:45)
[2019-11-28] MEDS: MAGNESIUM OXIDE 400 MG TABLET PO SCH ×2 (08:34→21:31)
[2019-11-28] MEDS: PREGABALIN 100 MG CAPSULE PO SCH ×2 (08:34→21:31)
[2019-11-28] MEDS: amLODIPine 10 MG TABLET PO SCH (08:34)
[2019-11-28] MEDS: chlordiazePOXIDE 25 MG CAPSULE PO SCH (08:37)
[2019-11-28] MEDS ORDERED: VANCOMYCIN INJ 2,000 MG in SODIUM CHLORIDE 0.9% 500 ML IV ONE (10:30)
[2019-11-28] MEDS ORDERED: RIFAMPIN 300 MG CAPSULE PER TUBE SCH (10:30)
[2019-11-28] MEDS: ceFAZolin 2,000 MG in PREMIX 1 EACH IV SCH ×2 (15:14→21:39)
[2019-11-28] MEDS: SODIUM CHLORIDE 0.9% 1,000 ML IV SCH ×2 (18:01→21:31)
[2019-11-28] MEDS ORDERED: VANCOMYCIN INJ 1,500 MG in SODIUM CHLORIDE 0.9% 250 ML IV SCH (21:00)
[2019-11-29] MEDS: INSULIN LISPRO 100 UNIT/ML SUBCUT SCH ×4 (00:07→18:31)
[2019-11-29] MEDS: methylPREDNISolone SOD SUC 40 MG/1 ML VIAL IV SCH ×3 (00:07→16:19)
[2019-11-29] MEDS: DEXMEDETOMIDINE 400 MCG in SODIUM CHLORIDE 0.9% 96 ML IV PRN ×4 (02:51→14:23)
[2019-11-29] MEDS: ACETAMINOPHEN 325 MG TABLET PO PRN ×2 (03:12→08:41)
[2019-11-29 04:07] LABS: Allen Test Positive; Pt O2 Delivery Device Ventilator
[2019-11-29 04:08] LABS: ABG Base Excess 4.1 MMOL/L (-2.5-2.5); ABG HCO3 25.5 MMOL/L (20-26); ABG PCO2 29.8 MM HG (35-48); ABG PH 7.551 (7.35-7.45); ABG PO2 146.7 MM HG (80-95); ABG TCO2 26.5 MMOL/L (23-27)
[2019-11-29 04:11] LABS: ABG Oxygen Saturation 99.2 % (95-100)
[2019-11-29] MEDS: ceFAZolin 2,000 MG in PREMIX 1 EACH IV SCH ×3 (05:06→20:28)
[2019-11-29 05:13] LABS: Basophils % 0.1 % (0.0-0.8); Hematocrit 26.1 VOL% (35.7-47.0); Immature Granulocytes % 0.8 %; Immature Granulocytes Absolute 0.08 #; Lymphocytes # 0.8 10*3/uL (1.4-4.0); Lymphocytes % 7.8 % (21.3-54.2); Mean Corpuscular HGB Conc 28.7 GM/DL (32-36); Mean Corpuscular Volume 86.1 FL (87-102); Mean Platelet Volume 14.3 FL (9.6-12.0); Monocytes % 7.1 % (1.7-12.7); Neutrophils % 84.2 % (38.7-73.9); Red Blood Count 3.03 MC/CUMM (3.8-5.5); Red Cell Distribution Width 21.6 % (9.3-17.3); White Blood Count 10.1 T/CUMM (4-12)
[2019-11-29 05:18] LABS: Hemoglobin 7.5 GM/DL (12.0-16.0); Platelet Count 289 T/CUMM (130-400)
[2019-11-29 05:34] LABS: Calcium 9.4 MG/DL (8.5-10.1); Osmolality,Calculated 293.8 MOS/KG (273-304)
[2019-11-29] MEDS: chlordiazePOXIDE 25 MG CAPSULE PO SCH (08:40)
[2019-11-29] MEDS: PANTOPRAZOLE 40 MG VIAL IV SCH (08:40)
[2019-11-29] MEDS: PREGABALIN 100 MG CAPSULE PO SCH ×2 (08:41→20:28)
[2019-11-29] MEDS: amLODIPine 10 MG TABLET PO SCH (08:41)
[2019-11-29] MEDS: MAGNESIUM OXIDE 400 MG TABLET PO SCH ×2 (08:41→20:28)
[2019-11-29] MEDS: ENOXAPARIN 100 MG/ML SYRINGE SUBCUT SCH ×2 (09:52→22:21)
[2019-11-29] MEDS: cloNIDine 0.3 MG/24 HR PATCH TRANSDERM SCH (16:19)
[2019-11-29] MEDS: HYDROmorphone 2 MG/1 ML VIAL IV PRN (16:26)
[2019-11-29] MEDS: SODIUM CHLORIDE 0.9% 1,000 ML IV SCH (22:19)
[2019-11-30] MEDS: INSULIN LISPRO 100 UNIT/ML SUBCUT SCH ×5 (00:13→23:42)
[2019-11-30] MEDS: HYDROmorphone 2 MG/1 ML VIAL IV PRN ×2 (00:17→18:13)
[2019-11-30] MEDS: methylPREDNISolone SOD SUC 40 MG/1 ML VIAL IV SCH ×4 (00:17→23:48)
[2019-11-30] MEDS: ACETAMINOPHEN 325 MG TABLET PO PRN (00:18)
[2019-11-30 03:29] LABS: ABG Base Excess 5.4 MMOL/L (-2.5-2.5); ABG HCO3 29.4 MMOL/L (20-26); ABG PCO2 48.3 MM HG (35-48); ABG PH 7.412 (7.35-7.45); ABG TCO2 28.8 MMOL/L (23-27); Allen Test Positive; Pt O2 Delivery Device Ventilator
[2019-11-30] MEDS: ceFAZolin 2,000 MG in PREMIX 1 EACH IV SCH ×3 (04:03→20:56)
[2019-11-30] MEDS: DEXMEDETOMIDINE 400 MCG in SODIUM CHLORIDE 0.9% 96 ML IV PRN ×2 (04:33→21:29)
[2019-11-30 04:49] LABS: Eosinophils % 0.1 % (0.00-10.9); Hematocrit 25.7 VOL% (35.7-47.0); Hemoglobin 7.3 GM/DL (12.0-16.0); Immature Granulocytes % 0.6 %; Immature Granulocytes Absolute 0.05 #; Lymphocytes # 1.1 10*3/uL (1.4-4.0); Lymphocytes % 13.2 % (21.3-54.2); Mean Corpuscular HGB Conc 28.4 GM/DL (32-36); Mean Corpuscular Volume 86.2 FL (87-102); Mean Platelet Volume 14.5 FL (9.6-12.0); Monocytes % 8.6 % (1.7-12.7); Neutrophils % 77.5 % (38.7-73.9); Platelet Count 255 T/CUMM (130-400); Red Blood Count 2.98 MC/CUMM (3.8-5.5); Red Cell Distribution Width 21.2 % (9.3-17.3); White Blood Count 8.4 T/CUMM (4-12)
[2019-11-30 05:14] LABS: Calcium 9.5 MG/DL (8.5-10.1)
[2019-11-30 05:26] LABS: Anisocytosis 1+; Hypochromasia 1+; Microcytosis 1+; Polychromasia Slight
[2019-11-30 05:27] LABS: Platelet Estimate Normal
[2019-11-30] MEDS: MAGNESIUM OXIDE 400 MG TABLET PO SCH ×2 (08:00→20:56)
[2019-11-30] MEDS: PREGABALIN 100 MG CAPSULE PO SCH ×2 (08:00→20:55)
[2019-11-30] MEDS: amLODIPine 10 MG TABLET PO SCH (08:01)
[2019-11-30] MEDS: PANTOPRAZOLE 40 MG VIAL IV SCH (08:01)
[2019-11-30] MEDS ORDERED: MAGNESIUM SULF RIDER 2 GM in PREMIX 1 EACH IV ONE (09:21)
[2019-11-30] MEDS: ENOXAPARIN 100 MG/ML SYRINGE SUBCUT SCH ×2 (09:33→21:45)
[2019-11-30] MEDS: SODIUM CHLORIDE 0.9% 1,000 ML IV SCH ×2 (16:30→20:55)
[2019-12-01 03:41] LABS: ABG Base Excess 6.4 MMOL/L (-2.5-2.5); ABG HCO3 30.3 MMOL/L (20-26); ABG Oxygen Saturation 98.8 % (95-100); ABG PCO2 48.4 MM HG (35-48); ABG PH 7.424 (7.35-7.45); ABG TCO2 29.4 MMOL/L (23-27); Allen Test Positive; Pt O2 Delivery Device Ventilator
[2019-12-01 04:05] LABS: Basophils % 0.1 % (0.0-0.8); Eosinophils # 0.1 10*3/uL (0.0-0.87); Eosinophils % 0.6 % (0.00-10.9); Hematocrit 27.5 VOL% (35.7-47.0); Hemoglobin 7.9 GM/DL (12.0-16.0); Immature Granulocytes % 0.5 %; Immature Granulocytes Absolute 0.04 #; Lymphocytes # 0.9 10*3/uL (1.4-4.0); Lymphocytes % 11.4 % (21.3-54.2); Mean Corpuscular HGB Conc 28.7 GM/DL (32-36); Mean Corpuscular Volume 86.2 FL (87-102); Mean Platelet Volume 14.1 FL (9.6-12.0); Monocytes % 5.5 % (1.7-12.7); Neutrophils % 81.9 % (38.7-73.9); Platelet Count 261 T/CUMM (130-400); Red Blood Count 3.19 MC/CUMM (3.8-5.5); Red Cell Distribution Width 20.8 % (9.3-17.3); White Blood Count 7.9 T/CUMM (4-12)
[2019-12-01 04:06] LABS: Calcium 9.4 MG/DL (8.5-10.1); Osmolality,Calculated 286.3 MOS/KG (273-304)
[2019-12-01] MEDS: ceFAZolin 2,000 MG in PREMIX 1 EACH IV SCH ×3 (05:41→20:00)
[2019-12-01] MEDS: INSULIN LISPRO 100 UNIT/ML SUBCUT SCH ×3 (05:45→18:13)
[2019-12-01] MEDS: PANTOPRAZOLE 40 MG VIAL IV SCH (08:11)
[2019-12-01] MEDS: methylPREDNISolone SOD SUC 40 MG/1 ML VIAL IV SCH ×2 (08:11→16:09)
[2019-12-01] MEDS: MAGNESIUM OXIDE 400 MG TABLET PO SCH ×2 (08:11→20:00)
[2019-12-01] MEDS: amLODIPine 10 MG TABLET PO SCH (08:11)
[2019-12-01] MEDS: PREGABALIN 100 MG CAPSULE PO SCH ×2 (08:11→20:00)
[2019-12-01] MEDS: ENOXAPARIN 100 MG/ML SYRINGE SUBCUT SCH ×2 (09:59→22:00)
[2019-12-01] MEDS ORDERED: MAGNESIUM SULF RIDER 4 GM in PREMIX 1 EACH IV ONE (10:47)
[2019-12-01] MEDS: DEXMEDETOMIDINE 400 MCG in SODIUM CHLORIDE 0.9% 96 ML IV PRN (10:52)
[2019-12-01] MEDS ORDERED: hydrALAZINE 20 MG/1 ML VIAL IV PRN (15:05)
[2019-12-01] MEDS: SODIUM CHLORIDE 0.9% 1,000 ML IV SCH (22:15)
[2019-12-02] MEDS: methylPREDNISolone SOD SUC 40 MG/1 ML VIAL IV SCH ×3 (00:34→15:30)
[2019-12-02] MEDS: DEXMEDETOMIDINE 400 MCG in SODIUM CHLORIDE 0.9% 96 ML IV PRN (02:01)
[2019-12-02] MEDS: INSULIN LISPRO 100 UNIT/ML SUBCUT SCH ×4 (02:59→17:58)
[2019-12-02 04:17] LABS: ABG HCO3 31.5 MMOL/L (20-26); ABG Oxygen Saturation 96.5 % (95-100); ABG PCO2 44.9 MM HG (35-48); ABG PH 7.464 (7.35-7.45); ABG PO2 90.3 MM HG (80-95); ABG TCO2 32.9 MMOL/L (23-27); Allen Test Positive; Pt O2 Delivery Device Ventilator
[2019-12-02 04:39] LABS: Eosinophils % 0.4 % (0.00-10.9); Hematocrit 27.4 VOL% (35.7-47.0); Hemoglobin 8.1 GM/DL (12.0-16.0); Immature Granulocytes % 0.7 %; Immature Granulocytes Absolute 0.05 #; Lymphocytes # 0.9 10*3/uL (1.4-4.0); Lymphocytes % 12.1 % (21.3-54.2); Mean Corpuscular HGB Conc 29.6 GM/DL (32-36); Mean Corpuscular Volume 86.4 FL (87-102); Mean Platelet Volume 13.9 FL (9.6-12.0); Monocytes % 5.3 % (1.7-12.7); Neutrophils % 81.5 % (38.7-73.9); Platelet Count 273 T/CUMM (130-400); Red Blood Count 3.17 MC/CUMM (3.8-5.5); Red Cell Distribution Width 20.4 % (9.3-17.3); White Blood Count 7.5 T/CUMM (4-12)
[2019-12-02 04:57] LABS: Anisocytosis 1+; Hypochromasia 1+; Microcytosis 1+; Platelet Estimate Normal; Polychromasia Slight
[2019-12-02 05:42] LABS: Calcium 9.6 MG/DL (8.5-10.1); Osmolality,Calculated 282.4 MOS/KG (273-304)
[2019-12-02] MEDS: ceFAZolin 2,000 MG in PREMIX 1 EACH IV SCH ×3 (05:57→20:30)
[2019-12-02 07:31] LABS: SARS-CoV-2 Total Ab Interp Reactive
[2019-12-02] MEDS: amLODIPine 10 MG TABLET PO SCH (08:00)
[2019-12-02] MEDS: MAGNESIUM OXIDE 400 MG TABLET PO SCH ×2 (08:00→21:01)
[2019-12-02] MEDS: PANTOPRAZOLE 40 MG VIAL IV SCH (08:00)
[2019-12-02] MEDS: PREGABALIN 100 MG CAPSULE PO SCH ×2 (08:00→21:01)
[2019-12-02] MEDS: ENOXAPARIN 100 MG/ML SYRINGE SUBCUT SCH ×2 (09:31→21:30)
[2019-12-02] MEDS: ALBUTEROL/IPRATROPIUM 3 ML NEB RESP TX SCH (19:37)
[2019-12-02] MEDS: SODIUM CHLORIDE 0.9% 1,000 ML IV SCH (19:45)
[2019-12-03] MEDS: ALBUTEROL/IPRATROPIUM 3 ML NEB RESP TX SCH ×4 (00:26→20:36)
[2019-12-03] MEDS: INSULIN LISPRO 100 UNIT/ML SUBCUT SCH ×4 (01:07→17:35)
[2019-12-03] MEDS: methylPREDNISolone SOD SUC 40 MG/1 ML VIAL IV SCH ×3 (01:07→16:39)
[2019-12-03 05:08] LABS: ABG Base Excess 5.3 MMOL/L (-2.5-2.5); ABG HCO3 28.8 MMOL/L (20-26); ABG PCO2 37.9 MM HG (35-48); ABG PH 7.499 (7.35-7.45); Allen Test Positive
[2019-12-03 05:27] LABS: Basophils % 0.1 % (0.0-0.8); Eosinophils % 0.1 % (0.00-10.9); Hematocrit 28.5 VOL% (35.7-47.0); Hemoglobin 8.3 GM/DL (12.0-16.0); Immature Granulocytes % 0.9 %; Immature Granulocytes Absolute 0.07 #; Lymphocytes # 0.9 10*3/uL (1.4-4.0); Lymphocytes % 11.4 % (21.3-54.2); Mean Corpuscular HGB Conc 29.1 GM/DL (32-36); Mean Corpuscular Volume 85.6 FL (87-102); Mean Platelet Volume 13.7 FL (9.6-12.0); Monocytes % 4.4 % (1.7-12.7); Neutrophils % 83.1 % (38.7-73.9); Platelet Count 270 T/CUMM (130-400); Red Blood Count 3.33 MC/CUMM (3.8-5.5); Red Cell Distribution Width 21.2 % (9.3-17.3)
[2019-12-03 05:32] LABS: Calcium 9.1 MG/DL (8.5-10.1); Osmolality,Calculated 280.4 MOS/KG (273-304)
[2019-12-03] MEDS: ceFAZolin 2,000 MG in PREMIX 1 EACH IV SCH ×3 (05:38→21:03)
[2019-12-03 05:53] LABS: Hypochromasia 2+; Platelet Estimate Adequate
[2019-12-03 05:54] LABS: Microcytosis 1+
[2019-12-03] MEDS: ACETAMINOPHEN 325 MG TABLET PO PRN ×3 (08:08→21:16)
[2019-12-03] MEDS: amLODIPine 10 MG TABLET PO SCH (08:08)
[2019-12-03] MEDS: MAGNESIUM OXIDE 400 MG TABLET PO SCH ×2 (08:08→21:16)
[2019-12-03] MEDS: PREGABALIN 100 MG CAPSULE PO SCH ×2 (08:08→21:16)
[2019-12-03] MEDS: PANTOPRAZOLE 40 MG VIAL IV SCH (09:10)
[2019-12-03] MEDS: ENOXAPARIN 100 MG/ML SYRINGE SUBCUT SCH ×2 (12:25→21:16)
[2019-12-03] MEDS: SODIUM CHLORIDE 0.9% 1,000 ML IV SCH (21:52)
[2019-12-04] MEDS: methylPREDNISolone SOD SUC 40 MG/1 ML VIAL IV SCH ×3 (00:01→17:35)
[2019-12-04] MEDS: INSULIN LISPRO 100 UNIT/ML SUBCUT SCH ×3 (00:34→12:34)
[2019-12-04] MEDS: ALBUTEROL/IPRATROPIUM 3 ML NEB RESP TX SCH ×4 (02:10→19:22)
[2019-12-04 03:25] LABS: Basophils % 0.1 % (0.0-0.8); Hematocrit 28.7 VOL% (35.7-47.0); Hemoglobin 8.3 GM/DL (12.0-16.0); Immature Granulocytes % 0.6 %; Immature Granulocytes Absolute 0.05 #; Lymphocytes # 0.7 10*3/uL (1.4-4.0); Lymphocytes % 8.1 % (21.3-54.2); Mean Corpuscular HGB Conc 28.9 GM/DL (32-36); Mean Corpuscular Volume 87.2 FL (87-102); Mean Platelet Volume 13.6 FL (9.6-12.0); Neutrophils % 88.2 % (38.7-73.9); Platelet Count 270 T/CUMM (130-400); Red Blood Count 3.29 MC/CUMM (3.8-5.5); Red Cell Distribution Width 20.7 % (9.3-17.3); White Blood Count 8.2 T/CUMM (4-12)
[2019-12-04 03:39] LABS: Calcium 9.2 MG/DL (8.5-10.1); Osmolality,Calculated 284.1 MOS/KG (273-304)
[2019-12-04 04:41] LABS: ABG Base Excess 3.8 MMOL/L (-2.5-2.5); ABG HCO3 27.8 MMOL/L (20-26); ABG Oxygen Saturation 96.7 % (95-100); ABG PCO2 39.1 MM HG (35-48); ABG PH 7.469 (7.35-7.45); ABG PO2 92.6 MM HG (80-95); Allen Test Positive
[2019-12-04] MEDS: ceFAZolin 2,000 MG in PREMIX 1 EACH IV SCH ×3 (04:57→23:00)
[2019-12-04] MEDS: PREGABALIN 100 MG CAPSULE PO SCH ×2 (08:41→22:17)
[2019-12-04] MEDS: MAGNESIUM OXIDE 400 MG TABLET PO SCH ×2 (08:41→22:16)
[2019-12-04] MEDS: amLODIPine 10 MG TABLET PO SCH (08:42)
[2019-12-04] MEDS: PANTOPRAZOLE 40 MG VIAL IV SCH (08:43)
[2019-12-04] MEDS: ENOXAPARIN 100 MG/ML SYRINGE SUBCUT SCH (09:20)
[2019-12-04] MEDS ORDERED: ENOXAPARIN 40 MG/0.4 ML SYRINGE SUBCUT SCH (15:56)
[2019-12-04] MEDS: INSULIN REGULAR 100 UNIT/ML SUBCUT SCH ×2 (16:57→22:38)
[2019-12-04] MEDS: ACETAMINOPHEN 325 MG TABLET PO PRN (17:35)
[2019-12-04] MEDS: ENOXAPARIN 40 MG/0.4 ML SYRINGE SUBCUT SCH (22:17)
[2019-12-05] MEDS: methylPREDNISolone SOD SUC 40 MG/1 ML VIAL IV SCH ×3 (00:59→16:56)
[2019-12-05] MEDS: ALBUTEROL/IPRATROPIUM 3 ML NEB RESP TX SCH ×4 (02:32→19:31)
[2019-12-05] MEDS: ceFAZolin 2,000 MG in PREMIX 1 EACH IV SCH ×3 (06:24→20:46)
[2019-12-05 06:55] LABS: Basophils % 0.1 % (0.0-0.8); Hematocrit 28.9 VOL% (35.7-47.0); Hemoglobin 8.4 GM/DL (12.0-16.0); Immature Granulocytes % 1.1 %; Immature Granulocytes Absolute 0.09 #; Lymphocytes # 0.7 10*3/uL (1.4-4.0); Lymphocytes % 9.2 % (21.3-54.2); Mean Corpuscular HGB Conc 29.1 GM/DL (32-36); Mean Corpuscular Volume 85.8 FL (87-102); Monocytes % 3.9 % (1.7-12.7); NRBC # 0.04 10*3/uL; Neutrophils % 85.7 % (38.7-73.9); Platelet Count 241 T/CUMM (130-400); Red Blood Count 3.37 MC/CUMM (3.8-5.5); Red Cell Distribution Width 20.8 % (9.3-17.3); White Blood Count 7.9 T/CUMM (4-12)
[2019-12-05 07:22] LABS: Calcium 9.3 MG/DL (8.5-10.1); Osmolality,Calculated 279.4 MOS/KG (273-304)
[2019-12-05 07:28] LABS: Platelet Estimate Normal
[2019-12-05 07:29] LABS: Anisocytosis 1+; Hypochromasia 1+; Polychromasia Slight
[2019-12-05] MEDS: ACETAMINOPHEN 325 MG TABLET PO PRN (09:01)
[2019-12-05] MEDS: MAGNESIUM OXIDE 400 MG TABLET PO SCH ×2 (09:01→20:46)
[2019-12-05] MEDS: amLODIPine 10 MG TABLET PO SCH (09:02)
[2019-12-05] MEDS: ENOXAPARIN 40 MG/0.4 ML SYRINGE SUBCUT SCH ×2 (09:03→20:46)
[2019-12-05] MEDS: PREGABALIN 100 MG CAPSULE PO SCH ×2 (09:03→20:46)
[2019-12-05] MEDS: PANTOPRAZOLE 40 MG VIAL IV SCH (09:05)
[2019-12-05] MEDS: POTASSIUM CHLORIDE 20 MEQ/15 ML UDCUP PER TUBE PRN ×3 (09:08→16:56)
[2019-12-05] MEDS: INSULIN REGULAR 100 UNIT/ML SUBCUT SCH ×4 (09:59→22:15)
[2019-12-05] MEDS ORDERED: TUBERCULIN SKIN TEST 0.1 ML SYRINGE INTRADERM ONE (13:40)
[2019-12-06] MEDS: ALBUTEROL/IPRATROPIUM 3 ML NEB RESP TX SCH ×4 (00:54→19:15)
[2019-12-06] MEDS: methylPREDNISolone SOD SUC 40 MG/1 ML VIAL IV SCH ×3 (01:00→16:04)
[2019-12-06 06:27] LABS: Hematocrit 28.8 VOL% (35.7-47.0); Hemoglobin 8.5 GM/DL (12.0-16.0); Immature Granulocytes Absolute 0.08 #; Lymphocytes # 0.9 10*3/uL (1.4-4.0); Lymphocytes % 10.9 % (21.3-54.2); Mean Corpuscular HGB Conc 29.5 GM/DL (32-36); Mean Corpuscular Volume 85.5 FL (87-102); Mean Platelet Volume 13.8 FL (9.6-12.0); Monocytes % 4.1 % (1.7-12.7); NRBC # 0.03 10*3/uL; Platelet Count 205 T/CUMM (130-400); Red Blood Count 3.37 MC/CUMM (3.8-5.5); Red Cell Distribution Width 20.5 % (9.3-17.3); White Blood Count 7.8 T/CUMM (4-12)
[2019-12-06 06:42] LABS: Calcium 9.1 MG/DL (8.5-10.1); Osmolality,Calculated 278.5 MOS/KG (273-304)
[2019-12-06 06:54] LABS: Platelet Estimate Normal
[2019-12-06 06:57] LABS: Anisocytosis 2+; Polychromasia Slight; Target Cells Few; Tear Drop Cells Few
[2019-12-06] MEDS: INSULIN REGULAR 100 UNIT/ML SUBCUT SCH ×3 (08:40→16:05)
[2019-12-06] MEDS: cloNIDine 0.3 MG/24 HR PATCH TRANSDERM SCH (10:43)
[2019-12-06] MEDS: PANTOPRAZOLE 40 MG VIAL IV SCH (10:44)
[2019-12-06] MEDS: MAGNESIUM OXIDE 400 MG TABLET PO SCH ×2 (10:45→21:56)
[2019-12-06] MEDS: amLODIPine 10 MG TABLET PO SCH (10:46)
[2019-12-06] MEDS: PREGABALIN 100 MG CAPSULE PO SCH ×2 (10:46→21:56)
[2019-12-06] MEDS: ENOXAPARIN 40 MG/0.4 ML SYRINGE SUBCUT SCH ×2 (10:46→21:57)
[2019-12-06] MEDS: ceFAZolin 2,000 MG in PREMIX 1 EACH IV SCH ×2 (10:53→18:44)
[2019-12-07] MEDS: INSULIN REGULAR 100 UNIT/ML SUBCUT SCH ×5 (00:25→21:39)
[2019-12-07] MEDS: methylPREDNISolone SOD SUC 40 MG/1 ML VIAL IV SCH ×3 (01:02→16:51)
[2019-12-07] MEDS: ALBUTEROL/IPRATROPIUM 3 ML NEB RESP TX SCH ×4 (02:00→19:35)
[2019-12-07] MEDS: ceFAZolin 2,000 MG in PREMIX 1 EACH IV SCH ×3 (02:07→17:59)
[2019-12-07 06:12] LABS: Calcium 9.2 MG/DL (8.5-10.1); Osmolality,Calculated 275.8 MOS/KG (273-304)
[2019-12-07 06:30] LABS: Basophils % 0.1 % (0.0-0.8); Eosinophils % 0.1 % (0.00-10.9); Hematocrit 33.9 VOL% (35.7-47.0); Hemoglobin 10.2 GM/DL (12.0-16.0); Immature Granulocytes Absolute 0.09 #; Lymphocytes # 0.9 10*3/uL (1.4-4.0); Lymphocytes % 9.4 % (21.3-54.2); Mean Corpuscular HGB Conc 30.1 GM/DL (32-36); Mean Corpuscular Volume 83.3 FL (87-102); Monocytes % 2.8 % (1.7-12.7); NRBC # 0.06 10*3/uL; Neutrophils % 86.6 % (38.7-73.9); Platelet Count 127 T/CUMM (130-400); Red Blood Count 4.07 MC/CUMM (3.8-5.5); Red Cell Distribution Width 20.2 % (9.3-17.3); White Blood Count 9.4 T/CUMM (4-12)
[2019-12-07] MEDS: PANTOPRAZOLE 40 MG VIAL IV SCH (08:38)
[2019-12-07] MEDS: MAGNESIUM OXIDE 400 MG TABLET PO SCH ×2 (08:39→21:32)
[2019-12-07] MEDS: amLODIPine 10 MG TABLET PO SCH (08:39)
[2019-12-07] MEDS: PREGABALIN 100 MG CAPSULE PO SCH ×2 (08:39→21:32)
[2019-12-07] MEDS: ENOXAPARIN 40 MG/0.4 ML SYRINGE SUBCUT SCH ×2 (08:39→21:36)
[2019-12-07 12:34] LABS: Atypical Lymphocytes S; Hypochromasia 3+; Lymphocytes 8 % (20-55); Platelet Estimate Adequate; Polychromasia Slight; Segmented Neutrophils 92 % (50-85); Total Cells Counted 100
[2019-12-08] MEDS: methylPREDNISolone SOD SUC 40 MG/1 ML VIAL IV SCH ×3 (00:50→15:45)
[2019-12-08] MEDS: ALBUTEROL/IPRATROPIUM 3 ML NEB RESP TX SCH ×4 (00:55→19:03)
[2019-12-08] MEDS: ceFAZolin 2,000 MG in PREMIX 1 EACH IV SCH ×3 (02:15→17:58)
[2019-12-08 06:24] LABS: Calcium 9.9 MG/DL (8.5-10.1)
[2019-12-08 06:27] LABS: Basophils % 0.1 % (0.0-0.8); Hematocrit 34.2 VOL% (35.7-47.0); Hemoglobin 10.2 GM/DL (12.0-16.0); Immature Granulocytes % 0.9 %; Immature Granulocytes Absolute 0.09 #; Lymphocytes # 0.9 10*3/uL (1.4-4.0); Lymphocytes % 9.3 % (21.3-54.2); Mean Corpuscular HGB Conc 29.8 GM/DL (32-36); Mean Corpuscular Volume 83.8 FL (87-102); Monocytes % 3.5 % (1.7-12.7); NRBC # 0.03 10*3/uL; Neutrophils % 86.2 % (38.7-73.9); Platelet Count 183 T/CUMM (130-400); Red Blood Count 4.08 MC/CUMM (3.8-5.5); Red Cell Distribution Width 19.9 % (9.3-17.3); White Blood Count 9.7 T/CUMM (4-12)
[2019-12-08] MEDS: INSULIN REGULAR 100 UNIT/ML SUBCUT SCH ×4 (07:49→22:55)
[2019-12-08 08:49] LABS: Hypochromasia 4+; Tear Drop Cells Few
[2019-12-08 08:50] LABS: Platelet Estimate Adequate; Polychromasia Slight; Stomatocytes Slight
[2019-12-08] MEDS: amLODIPine 10 MG TABLET PO SCH (09:45)
[2019-12-08] MEDS: PREGABALIN 100 MG CAPSULE PO SCH ×2 (09:45→22:53)
[2019-12-08] MEDS: MAGNESIUM OXIDE 400 MG TABLET PO SCH ×2 (09:45→22:53)
[2019-12-08] MEDS: ENOXAPARIN 40 MG/0.4 ML SYRINGE SUBCUT SCH ×2 (09:48→22:57)
[2019-12-08] MEDS: PANTOPRAZOLE 40 MG VIAL IV SCH (10:16)
[2019-12-09] MEDS: methylPREDNISolone SOD SUC 40 MG/1 ML VIAL IV SCH ×2 (00:57→09:04)
[2019-12-09] MEDS: ALBUTEROL/IPRATROPIUM 3 ML NEB RESP TX SCH ×3 (00:59→13:33)
[2019-12-09] MEDS: ceFAZolin 2,000 MG in PREMIX 1 EACH IV SCH ×2 (02:28→10:58)
[2019-12-09 05:09] LABS: Basophils % 0.1 % (0.0-0.8); Hematocrit 29.8 VOL% (35.7-47.0); Hemoglobin 8.7 GM/DL (12.0-16.0); Immature Granulocytes % 1.2 %; Immature Granulocytes Absolute 0.12 #; Lymphocytes # 0.9 10*3/uL (1.4-4.0); Lymphocytes % 9.1 % (21.3-54.2); Mean Corpuscular HGB Conc 29.2 GM/DL (32-36); Mean Corpuscular Volume 84.2 FL (87-102); Monocytes % 4.5 % (1.7-12.7); NRBC # 0.03 10*3/uL; Neutrophils % 85.1 % (38.7-73.9); Platelet Count 162 T/CUMM (130-400); Red Blood Count 3.54 MC/CUMM (3.8-5.5); Red Cell Distribution Width 19.2 % (9.3-17.3); White Blood Count 10.2 T/CUMM (4-12)
[2019-12-09 05:33] LABS: Calcium 9.4 MG/DL (8.5-10.1)
[2019-12-09] MEDS: INSULIN REGULAR 100 UNIT/ML SUBCUT SCH (08:09)
[2019-12-09] MEDS ORDERED: MAGNESIUM HYDROXIDE SUSP 30 ML UDCUP PO ONE (09:02)
[2019-12-09] MEDS: PREGABALIN 100 MG CAPSULE PO SCH (09:02)
[2019-12-09] MEDS: MAGNESIUM OXIDE 400 MG TABLET PO SCH (09:02)
[2019-12-09] MEDS: amLODIPine 10 MG TABLET PO SCH (09:03)
[2019-12-09] MEDS: ENOXAPARIN 40 MG/0.4 ML SYRINGE SUBCUT SCH (09:03)
[2019-12-09] MEDS: POTASSIUM CHLORIDE 20 MEQ/15 ML UDCUP PER TUBE PRN (09:04)
[2019-12-09] MEDS: PANTOPRAZOLE 40 MG VIAL IV SCH (09:04)
[2019-12-09] MEDS ORDERED: methylPREDNISolone SOD SUC 40 MG/1 ML VIAL IV SCH (09:30)
[2019-12-09 15:49] VITALS: BP 137/90
[2019-12-09] MEDS ORDERED: INSULIN REGULAR 100 UNIT/ML SUBCUT SCH (21:00)
== END 2019-12-09 16:30 | DRG 130 ==
LOC: N.ED 06:36 → SUATTDRO 09:11 → N.EDINP 09:11 → N.ICU 09:57 → N.CC 11-17 20:43 → N.TELEN 12-04 15:39
PROVIDERS: ADMIT Internal Medicine; ATTEND Hospitalist

== ENCOUNTER 2021-02-19 10:14 | Inpatient (IN) ==
[2021-02-19] MEDS ORDERED: ALBUTEROL/IPRATROPIUM 3 ML NEB RESP TX STA (10:36)
[2021-02-19] MEDS ORDERED: methylPREDNISolone SOD SUC 125 MG/2 ML VIAL IV STA (10:36)
[2021-02-19 11:00] LABS: Albumin 3.5 G/DL (3.4-5.0); Bilirubin,Total 1.4 MG/DL (0.20-1.00); Calcium 8.4 MG/DL (8.5-10.1); Osmolality,Calculated 272.7 MOS/KG (273-304); Potassium 3.2 MMOL/L (3.5-5.1); Total Protein 6.8 G/DL (6.4-8.2)
[2021-02-19 11:09] LABS: Basophils # 0.1 10*3/uL (0.0-0.2); Basophils % 0.7 % (0.0-0.8); Eosinophils # 0.2 10*3/uL (0.0-0.87); Eosinophils % 1.7 % (0.00-10.9); Hemoglobin 8.5 GM/DL (12.0-16.0); Immature Granulocytes % 0.7 %; Immature Granulocytes Absolute 0.08 #; Lymphocytes # 1.2 10*3/uL (1.4-4.0); Lymphocytes % 9.9 % (21.3-54.2); Mean Corpuscular HGB Conc 28.3 GM/DL (32-36); Mean Corpuscular Volume 67.3 FL (87-102); Monocytes % 8.7 % (1.7-12.7); NRBC # 0.04 10*3/uL; Neutrophils % 78.3 % (38.7-73.9); Platelet Count 252 T/CUMM (130-400); Red Blood Count 4.46 MC/CUMM (3.8-5.5); Red Cell Distribution Width 20.8 % (9.3-17.3); White Blood Count 11.6 T/CUMM (4-12)
[2021-02-19 11:12] LABS: ABG Base Excess 2.9 MMOL/L (-2.5-2.5); ABG HCO3 26.4 MMOL/L (20-26); ABG Oxygen Saturation 84.9 % (95-100); ABG PCO2 35.9 MM HG (35-48); ABG PH 7.485 (7.35-7.45); ABG PO2 49.6 MM HG (80-95); ABG TCO2 27.5 MMOL/L (23-27)
[2021-02-19] MEDS ORDERED: VANCOMYCIN INJ 2,250 MG in SODIUM CHLORIDE 0.9% 250 ML IV STA (12:10)
[2021-02-19] MEDS ORDERED: cefTRIAXone 1,000 MG in SODIUM CHLORIDE 0.9% 100 ML IV STA (12:10)
[2021-02-19] MEDS ORDERED: GLUCAGON 1 MG VIAL IM PRN (13:42)
[2021-02-19] MEDS ORDERED: hydrALAZINE 20 MG/1 ML VIAL IV PRN (13:42)
[2021-02-19] MEDS ORDERED: DEXTROSE 50% 25 GM/50 ML VIAL IV PRN (13:42)
[2021-02-19] MEDS ORDERED: ONDANSETRON 4 MG/2 ML VIAL IV PRN (13:42)
[2021-02-19] MEDS ORDERED: ACETAMINOPHEN 325 MG TABLET PO PRN (13:42)
[2021-02-19] MEDS ORDERED: VANCOMYCIN 1,000 MG VIAL ONE (13:58)
[2021-02-19] MEDS ORDERED: VANCOMYCIN INJ 2,250 MG in SODIUM CHLORIDE 0.9% 500 ML IV STA (14:08)
[2021-02-19 14:16] LABS: Folate 12.66 NG/ML (5.38-24.0)
[2021-02-19] MEDS ORDERED: FUROSEMIDE 40 MG/4 ML VIAL IV STA (14:29)
[2021-02-19 14:41] LABS: % Iron Saturation 4.9 % (18-50)
[2021-02-19 17:22] LABS: Bilirubin,Urine Negative (Negative); Blood, Urine Negative (Negative); Glucose,Urine (UA) Negative (Negative); Ketones,Urine 5 mg/dL (Negative); Nitrite,Urine Negative (Negative); Protein,Urine 30 MG/DL; RBC,Urine <1 /HPF (0-4); Squamous Epithelial Cell,Urine Occasional /HPF (0-10); Urine Appearance CLEAR (Clear); Urine Color Yellow (Yellow); Urine Specific Gravity 1.042 (1.001-1.035)
[2021-02-19] MEDS: methylPREDNISolone SOD SUC 40 MG/1 ML VIAL IV SCH ×2 (17:25→22:17)
[2021-02-19] MEDS: ENOXAPARIN 40 MG/0.4 ML SYRINGE SUBCUT SCH (17:25)
[2021-02-19] MEDS: ALBUTEROL 2.5 MG/3 ML NEB RESP TX SCH ×2 (20:14→23:54)
[2021-02-19] MEDS: PIPERACILLIN/TAZOBACTAM 3,375 MG in SODIUM CHLORIDE 0.9% 100 ML IV SCH (20:59)
[2021-02-19] MEDS: guaiFENesin/DM ER 600-30 MG TABLET PO SCH (21:00)
[2021-02-20 05:17] LABS: Basophils % 0.2 % (0.0-0.8); Hematocrit 28.1 VOL% (35.7-47.0); Hemoglobin 8.1 GM/DL (12.0-16.0); Immature Granulocytes Absolute 0.09 #; Lymphocytes # 0.8 10*3/uL (1.4-4.0); Lymphocytes % 9.6 % (21.3-54.2); Mean Corpuscular HGB Conc 28.8 GM/DL (32-36); Mean Corpuscular Volume 66.7 FL (87-102); Monocytes % 3.4 % (1.7-12.7); NRBC # 0.05 10*3/uL; Neutrophils % 85.8 % (38.7-73.9); Platelet Count 263 T/CUMM (130-400); Red Blood Count 4.21 MC/CUMM (3.8-5.5); Red Cell Distribution Width 20.3 % (9.3-17.3); White Blood Count 8.6 T/CUMM (4-12)
[2021-02-20] MEDS: methylPREDNISolone SOD SUC 40 MG/1 ML VIAL IV SCH ×3 (05:24→21:55)
[2021-02-20] MEDS: PIPERACILLIN/TAZOBACTAM 3,375 MG in SODIUM CHLORIDE 0.9% 100 ML IV SCH ×3 (05:25→21:58)
[2021-02-20 05:41] LABS: Calcium 8.7 MG/DL (8.5-10.1); Osmolality,Calculated 274.1 MOS/KG (273-304); Risk Ratio 2.5; Thyroid Stimulating Hormone 0.466 uIU/ml (0.358-3.74); VLDL Cholesterol 28.2 MG/DL
[2021-02-20 05:55] LABS: Hypochromasia 2+; Microcytosis 2+; Ovalocytes Slight; Platelet Estimate Normal
[2021-02-20] MEDS: ALBUTEROL 2.5 MG/3 ML NEB RESP TX SCH ×3 (07:35→20:42)
[2021-02-20] MEDS: PANTOPRAZOLE 40 MG TABLET PO SCH (08:22)
[2021-02-20] MEDS: guaiFENesin/DM ER 600-30 MG TABLET PO SCH ×2 (08:22→21:58)
[2021-02-20] MEDS ORDERED: FUROSEMIDE 40 MG/4 ML VIAL IV ONE (10:53)
[2021-02-20] MEDS ORDERED: MAGNESIUM SULF RIDER 2 GM/50 ML PREMIX IV ONE (10:53)
[2021-02-20] MEDS ORDERED: ALBUTEROL/IPRATROPIUM 3 ML NEB RESP TX PRN (11:01)
[2021-02-20] MEDS ORDERED: BACLOFEN 10 MG TABLET PO PRN (11:10)
[2021-02-20] MEDS: busPIRone 15 MG TABLET PO SCH ×2 (11:30→21:58)
[2021-02-20] MEDS: POTASSIUM CHLORIDE 20 MEQ TABLET PO PRN ×4 (11:30→18:17)
[2021-02-20] MEDS: FERRIC GLUCONATE COMPLEX 125 MG in SODIUM CHLORIDE 0.9% 100 ML IV SCH (11:31)
[2021-02-20] MEDS: ENOXAPARIN 40 MG/0.4 ML SYRINGE SUBCUT SCH (14:53)
[2021-02-20] MEDS: PREGABALIN 100 MG CAPSULE PO SCH (21:58)
[2021-02-21] MEDS: ALBUTEROL 2.5 MG/3 ML NEB RESP TX SCH ×4 (03:33→20:42)
[2021-02-21 05:42] LABS: Calcium 8.9 MG/DL (8.5-10.1); Osmolality,Calculated 288.5 MOS/KG (273-304); Potassium 4.2 MMOL/L (3.5-5.1)
[2021-02-21] MEDS: methylPREDNISolone SOD SUC 40 MG/1 ML VIAL IV SCH ×3 (05:43→21:53)
[2021-02-21] MEDS: PIPERACILLIN/TAZOBACTAM 3,375 MG in SODIUM CHLORIDE 0.9% 100 ML IV SCH ×3 (05:44→20:48)
[2021-02-21 06:08] LABS: Basophils % 0.1 % (0.0-0.8); Hematocrit 27.9 VOL% (35.7-47.0); Hemoglobin 7.6 GM/DL (12.0-16.0); Immature Granulocytes % 0.7 %; Immature Granulocytes Absolute 0.08 #; Lymphocytes # 0.7 10*3/uL (1.4-4.0); Lymphocytes % 5.8 % (21.3-54.2); Mean Corpuscular HGB Conc 27.2 GM/DL (32-36); Mean Corpuscular Volume 70.1 FL (87-102); Monocytes % 5.6 % (1.7-12.7); NRBC # 0.04 10*3/uL; Neutrophils % 87.8 % (38.7-73.9); Platelet Count 280 T/CUMM (130-400); Red Blood Count 3.98 MC/CUMM (3.8-5.5); Red Cell Distribution Width 20.5 % (9.3-17.3)
[2021-02-21 06:09] LABS: White Blood Count 11.5 T/CUMM (4-12)
[2021-02-21 06:14] LABS: Hypochromasia 2+
[2021-02-21 06:15] LABS: Microcytosis 2+; Platelet Estimate Normal; Polychromasia Slight
[2021-02-21] MEDS: guaiFENesin/DM ER 600-30 MG TABLET PO SCH ×2 (09:07→20:47)
[2021-02-21] MEDS: busPIRone 15 MG TABLET PO SCH ×2 (09:07→20:47)
[2021-02-21] MEDS: PREGABALIN 100 MG CAPSULE PO SCH ×2 (09:07→20:47)
[2021-02-21] MEDS: PANTOPRAZOLE 40 MG TABLET PO SCH ×2 (09:08→20:47)
[2021-02-21] MEDS ORDERED: MAGNESIUM HYDROXIDE SUSP 30 ML UDCUP PO ONE (11:34)
[2021-02-21] MEDS ORDERED: DOCUSATE SODIUM 100 MG CAPSULE PO PRN (11:34)
[2021-02-21] MEDS: POLYETHYLENE GLYCOL POWDER 17 GM PACK PO SCH (13:25)
[2021-02-21] MEDS: FUROSEMIDE 20 MG TABLET PO SCH (13:25)
[2021-02-21] MEDS: FERRIC GLUCONATE COMPLEX 125 MG in SODIUM CHLORIDE 0.9% 100 ML IV SCH (13:29)
[2021-02-22] MEDS: ALBUTEROL 2.5 MG/3 ML NEB RESP TX SCH ×2 (01:00→07:18)
[2021-02-22] MEDS: methylPREDNISolone SOD SUC 40 MG/1 ML VIAL IV SCH (05:52)
[2021-02-22] MEDS: PIPERACILLIN/TAZOBACTAM 3,375 MG in SODIUM CHLORIDE 0.9% 100 ML IV SCH (05:53)
[2021-02-22 07:07] LABS: Calcium 8.9 MG/DL (8.5-10.1); Potassium 4.1 MMOL/L (3.5-5.1)
[2021-02-22 07:09] LABS: Basophils % 0.1 % (0.0-0.8); Eosinophils % 0.1 % (0.00-10.9); Hematocrit 31.1 VOL% (35.7-47.0); Hemoglobin 8.4 GM/DL (12.0-16.0); Immature Granulocytes % 2.4 %; Immature Granulocytes Absolute 0.39 #; Lymphocytes # 1.3 10*3/uL (1.4-4.0); Lymphocytes % 8.3 % (21.3-54.2); Mean Corpuscular Volume 70.8 FL (87-102); Monocytes % 5.7 % (1.7-12.7); NRBC # 0.19 10*3/uL; Neutrophils % 83.4 % (38.7-73.9); Platelet Count 222 T/CUMM (130-400); Red Blood Count 4.39 MC/CUMM (3.8-5.5); Red Cell Distribution Width 21.9 % (9.3-17.3)
[2021-02-22] MEDS: guaiFENesin/DM ER 600-30 MG TABLET PO SCH (09:07)
[2021-02-22] MEDS: POLYETHYLENE GLYCOL POWDER 17 GM PACK PO SCH (09:07)
[2021-02-22] MEDS: PANTOPRAZOLE 40 MG TABLET PO SCH (09:08)
[2021-02-22] MEDS: FERRIC GLUCONATE COMPLEX 125 MG in SODIUM CHLORIDE 0.9% 100 ML IV SCH (09:08)
[2021-02-22] MEDS: PREGABALIN 100 MG CAPSULE PO SCH (09:08)
[2021-02-22] MEDS: busPIRone 15 MG TABLET PO SCH (09:08)
[2021-02-22] MEDS: FUROSEMIDE 20 MG TABLET PO SCH (09:08)
[2021-02-22] MEDS ORDERED: LACTULOSE 20 GM/30 ML UDCUP PO ONE (11:00)
[2021-02-22 11:24] VITALS: BP 142/104
== END 2021-02-22 11:50 | disposition home or self-care (01) | DRG 139 ==
LOC: EDUNIT# → EDBD → N.ED 10:14 → N.EDINP 13:42 → N.5E 16:36
PROVIDERS: ADMIT Internal Medicine; ATTEND Internal Medicine

== ENCOUNTER 2021-07-20 20:11 | Inpatient (IN) ==
[2021-07-20] MEDS ORDERED: ALBUTEROL/IPRATROPIUM 3 ML NEB RESP TX STA (20:51)
[2021-07-20] MEDS ORDERED: SODIUM CHLORIDE 0.9% 1,000 ML IV STA (20:51)
[2021-07-20 21:12] LABS: INR 1.1; PT Patient Result 11.9 SECS (10.5-12.0); Partial Thromboplastin Time 20.2 SECS (23.8-32.1)
[2021-07-20 21:14] LABS: Albumin 3.1 G/DL (3.4-5.0); Bilirubin,Total 0.6 MG/DL (0.20-1.00); Calcium 8.8 MG/DL (8.5-10.1); Osmolality,Calculated 277.5 MOS/KG (273-304); Potassium 3.9 MMOL/L (3.5-5.1); Total Protein 7.9 G/DL (6.4-8.2)
[2021-07-20 21:16] LABS: Basophils # 0.1 10*3/uL (0.0-0.2); Basophils % 0.5 % (0.0-0.8); Eosinophils % 0.2 % (0.00-10.9); Hematocrit 38.4 VOL% (35.7-47.0); Hemoglobin 11.5 GM/DL (12.0-16.0); Immature Granulocytes Absolute 0.12 #; Lymphocytes % 7.9 % (21.3-54.2); Mean Corpuscular HGB Conc 29.9 GM/DL (32-36); Mean Corpuscular Volume 77.7 FL (87-102); Mean Platelet Volume 12.2 FL (9.6-12.0); Monocytes % 4.9 % (1.7-12.7); NRBC # 0.12 10*3/uL; Neutrophils % 85.5 % (38.7-73.9); Platelet Count 286 T/CUMM (130-400); Red Blood Count 4.94 MC/CUMM (3.8-5.5); Red Cell Distribution Width 20.3 % (9.3-17.3)
[2021-07-21] MEDS ORDERED: cefTRIAXone 1,000 MG in SODIUM CHLORIDE 0.9% 100 ML IV STA (00:44)
[2021-07-21] MEDS ORDERED: MAGNESIUM SULF RIDER 2 GM/50 ML PREMIX IV STA (00:57)
[2021-07-21 02:07] LABS: ABG Base Excess 2.5 MMOL/L (-2.5-2.5); ABG HCO3 26.7 MMOL/L (20-26); ABG Oxygen Saturation 97.5 % (95-100); ABG PCO2 40.5 MM HG (35-48); ABG PH 7.432 (7.35-7.45); ABG TCO2 24.4 MMOL/L (23-27)
[2021-07-21] MEDS ORDERED: hydrALAZINE 20 MG/1 ML VIAL IV PRN (02:54)
[2021-07-21] MEDS ORDERED: ACETAMINOPHEN 325 MG TABLET PO PRN (02:54)
[2021-07-21] MEDS ORDERED: ONDANSETRON 4 MG/2 ML VIAL IV PRN (02:54)
[2021-07-21] MEDS ORDERED: GLUCAGON 1 MG VIAL IM PRN (02:54)
[2021-07-21] MEDS ORDERED: MORPHINE 4 MG/1 ML VIAL IV PRN (02:54)
[2021-07-21] MEDS ORDERED: DEXTROSE 10% 250 ML BAG IV PRN (02:54)
[2021-07-21] MEDS ORDERED: MAGNESIUM SULF RIDER 2 GM/50 ML PREMIX IV PRN (03:48)
[2021-07-21] MEDS ORDERED: MAGNESIUM SULF RIDER 4 GM/100 ML PREMIX IV PRN (03:48)
[2021-07-21] MEDS ORDERED: METHOCARBAMOL 500 MG TABLET PO PRN (03:51)
[2021-07-21 03:54] LABS: Basophils # 0.1 10*3/uL (0.0-0.2); Basophils % 0.4 % (0.0-0.8); Eosinophils % 0.2 % (0.00-10.9); Hematocrit 34.3 VOL% (35.7-47.0); Hemoglobin 10.2 GM/DL (12.0-16.0); Immature Granulocytes % 0.6 %; Immature Granulocytes Absolute 0.08 #; Lymphocytes # 1.5 10*3/uL (1.4-4.0); Lymphocytes % 11.7 % (21.3-54.2); Mean Corpuscular HGB Conc 29.7 GM/DL (32-36); Mean Corpuscular Volume 77.6 FL (87-102); Mean Platelet Volume 12.4 FL (9.6-12.0); Monocytes % 9.6 % (1.7-12.7); NRBC # 0.06 10*3/uL; Neutrophils % 77.5 % (38.7-73.9); Platelet Count 288 T/CUMM (130-400); Red Blood Count 4.42 MC/CUMM (3.8-5.5); Red Cell Distribution Width 19.7 % (9.3-17.3); White Blood Count 12.6 T/CUMM (4-12)
[2021-07-21 04:13] LABS: Calcium 8.9 MG/DL (8.5-10.1); Osmolality,Calculated 267.2 MOS/KG (273-304); Potassium 3.5 MMOL/L (3.5-5.1); Risk Ratio 3.29; Thyroid Stimulating Hormone 2.3 uIU/ml (0.358-3.74); VLDL Cholesterol 28.6 MG/DL
[2021-07-21] MEDS: PIPERACILLIN/TAZOBACTAM 3,375 MG in SODIUM CHLORIDE 0.9% 100 ML IV SCH ×3 (04:30→20:50)
[2021-07-21] MEDS: ALBUTEROL/IPRATROPIUM 3 ML NEB RESP TX SCH ×3 (08:00→19:22)
[2021-07-21] MEDS: PANTOPRAZOLE 40 MG TABLET PO SCH (08:45)
[2021-07-21] MEDS: FOLIC ACID 1 MG TABLET PO SCH (08:45)
[2021-07-21] MEDS: busPIRone 15 MG TABLET PO SCH ×2 (08:45→23:23)
[2021-07-21] MEDS: amLODIPine 10 MG TABLET PO SCH (08:45)
[2021-07-21] MEDS: THIAMINE 100 MG TABLET PO SCH (08:55)
[2021-07-21 11:59] LABS: Arterial Base Excess iSTAT 3 MMOL/L (-2.5-2.5); Arterial Bicarbonate iSTAT 28.3 MMOL/L (20-26); Arterial O2 Saturation iSTAT 86 % (95-100); Arterial PCO2 iSTAT 43 MM HG (35-48); Arterial PO2 iSTAT 51 MM HG (80-95); Arterial Total CO2 iSTAT 30 MMO/L (23-27); Arterial pH iSTAT 7.427 (7.35-7.45)
[2021-07-21] MEDS: LORazepam 2 MG/1 ML VIAL IV PRN (15:25)
[2021-07-21 22:31] LABS: ABG Base Excess 1.5 MMOL/L (-2.5-2.5); ABG HCO3 25.7 MMOL/L (20-26); ABG Oxygen Saturation 94.4 % (95-100); ABG PCO2 41.9 MM HG (35-48); ABG PH 7.407 (7.35-7.45); ABG PO2 79.2 MM HG (80-95); ABG TCO2 24.1 MMOL/L (23-27)
[2021-07-21] MEDS: ROSUVASTATIN 20 MG TABLET PO SCH (23:23)
[2021-07-22] MEDS: ALBUTEROL/IPRATROPIUM 3 ML NEB RESP TX SCH ×4 (00:11→19:43)
[2021-07-22] MEDS: PIPERACILLIN/TAZOBACTAM 3,375 MG in SODIUM CHLORIDE 0.9% 100 ML IV SCH ×3 (05:08→20:24)
[2021-07-22] MEDS: FOLIC ACID 1 MG TABLET PO SCH (09:29)
[2021-07-22] MEDS: busPIRone 15 MG TABLET PO SCH ×2 (09:30→20:23)
[2021-07-22] MEDS: PANTOPRAZOLE 40 MG TABLET PO SCH (09:30)
[2021-07-22] MEDS: amLODIPine 10 MG TABLET PO SCH (09:30)
[2021-07-22] MEDS: LORazepam 2 MG/1 ML VIAL IV PRN (09:30)
[2021-07-22] MEDS: THIAMINE 100 MG TABLET PO SCH (09:31)
[2021-07-22 10:08] LABS: Basophils # 0.1 10*3/uL (0.0-0.2); Basophils % 0.6 % (0.0-0.8); Eosinophils # 0.3 10*3/uL (0.0-0.87); Eosinophils % 2.4 % (0.00-10.9); Hematocrit 30.4 VOL% (35.7-47.0); Immature Granulocytes % 0.6 %; Immature Granulocytes Absolute 0.08 #; Lymphocytes # 1.3 10*3/uL (1.4-4.0); Lymphocytes % 9.6 % (21.3-54.2); Mean Corpuscular HGB Conc 29.6 GM/DL (32-36); Mean Corpuscular Volume 77.9 FL (87-102); Mean Platelet Volume 12.4 FL (9.6-12.0); Monocytes % 10.3 % (1.7-12.7); NRBC # 0.04 10*3/uL; Neutrophils % 76.5 % (38.7-73.9); Platelet Count 235 T/CUMM (130-400); Red Cell Distribution Width 19.9 % (9.3-17.3)
[2021-07-22 10:17] LABS: Calcium 8.4 MG/DL (8.5-10.1); Potassium 3.7 MMOL/L (3.5-5.1)
[2021-07-22] MEDS: methylPREDNISolone SOD SUC 40 MG/1 ML VIAL IV SCH ×2 (11:49→18:49)
[2021-07-22] MEDS: FUROSEMIDE 40 MG/4 ML VIAL IV SCH (17:03)
[2021-07-22] MEDS: ROSUVASTATIN 20 MG TABLET PO SCH (20:23)
[2021-07-23] MEDS: ALBUTEROL/IPRATROPIUM 3 ML NEB RESP TX SCH ×4 (00:41→19:55)
[2021-07-23] MEDS: methylPREDNISolone SOD SUC 40 MG/1 ML VIAL IV SCH ×3 (04:05→21:31)
[2021-07-23] MEDS: PIPERACILLIN/TAZOBACTAM 3,375 MG in SODIUM CHLORIDE 0.9% 100 ML IV SCH ×3 (04:05→21:30)
[2021-07-23 05:21] LABS: Basophils % 0.1 % (0.0-0.8); Hematocrit 31.3 VOL% (35.7-47.0); Hemoglobin 9.2 GM/DL (12.0-16.0); Immature Granulocytes % 0.8 %; Immature Granulocytes Absolute 0.08 #; Lymphocytes # 0.9 10*3/uL (1.4-4.0); Lymphocytes % 8.8 % (21.3-54.2); Mean Corpuscular HGB Conc 29.4 GM/DL (32-36); Mean Corpuscular Volume 78.3 FL (87-102); Mean Platelet Volume 12.4 FL (9.6-12.0); Monocytes % 3.9 % (1.7-12.7); Neutrophils % 86.4 % (38.7-73.9); Platelet Count 273 T/CUMM (130-400); Red Cell Distribution Width 19.5 % (9.3-17.3); White Blood Count 10.6 T/CUMM (4-12)
[2021-07-23 06:04] LABS: Calcium 8.8 MG/DL (8.5-10.1); Osmolality,Calculated 281.5 MOS/KG (273-304); Potassium 3.5 MMOL/L (3.5-5.1)
[2021-07-23] MEDS: busPIRone 15 MG TABLET PO SCH ×2 (09:38→21:32)
[2021-07-23] MEDS: THIAMINE 100 MG TABLET PO SCH (09:39)
[2021-07-23] MEDS: FOLIC ACID 1 MG TABLET PO SCH (09:39)
[2021-07-23] MEDS: PANTOPRAZOLE 40 MG TABLET PO SCH (09:39)
[2021-07-23] MEDS: amLODIPine 10 MG TABLET PO SCH (09:39)
[2021-07-23] MEDS: FUROSEMIDE 40 MG/4 ML VIAL IV SCH ×2 (11:25→17:13)
[2021-07-23] MEDS: ROSUVASTATIN 20 MG TABLET PO SCH (21:32)
[2021-07-24] MEDS: ALBUTEROL/IPRATROPIUM 3 ML NEB RESP TX SCH ×2 (00:35→19:12)
[2021-07-24] MEDS: PIPERACILLIN/TAZOBACTAM 3,375 MG in SODIUM CHLORIDE 0.9% 100 ML IV SCH ×3 (04:30→20:58)
[2021-07-24] MEDS: methylPREDNISolone SOD SUC 40 MG/1 ML VIAL IV SCH ×3 (05:26→20:58)
[2021-07-24] MEDS ORDERED: DEXTROSE 10% 250 ML BAG IV PRN (07:31)
[2021-07-24] MEDS: amLODIPine 10 MG TABLET PO SCH (09:48)
[2021-07-24] MEDS: FOLIC ACID 1 MG TABLET PO SCH (09:49)
[2021-07-24] MEDS: THIAMINE 100 MG TABLET PO SCH (09:49)
[2021-07-24] MEDS: PANTOPRAZOLE 40 MG TABLET PO SCH (09:49)
[2021-07-24] MEDS: busPIRone 15 MG TABLET PO SCH ×2 (09:49→20:58)
[2021-07-24] MEDS: FUROSEMIDE 40 MG/4 ML VIAL IV SCH ×2 (10:33→17:11)
[2021-07-24] MEDS: INSULIN REGULAR 100 UNIT/ML SUBCUT SCH ×2 (12:03→18:23)
[2021-07-24] MEDS: ROSUVASTATIN 20 MG TABLET PO SCH (20:58)
[2021-07-25] MEDS: INSULIN REGULAR 100 UNIT/ML SUBCUT SCH ×4 (00:45→18:02)
[2021-07-25] MEDS: ALBUTEROL/IPRATROPIUM 3 ML NEB RESP TX SCH ×4 (01:08→19:25)
[2021-07-25] MEDS: methylPREDNISolone SOD SUC 40 MG/1 ML VIAL IV SCH ×2 (03:24→17:22)
[2021-07-25 05:18] LABS: Hematocrit 36.9 VOL% (35.7-47.0); Immature Granulocytes % 0.5 %; Immature Granulocytes Absolute 0.05 #; Lymphocytes # 0.9 10*3/uL (1.4-4.0); Mean Corpuscular HGB Conc 30.1 GM/DL (32-36); Mean Corpuscular Volume 76.2 FL (87-102); Mean Platelet Volume 12.1 FL (9.6-12.0); Monocytes % 3.6 % (1.7-12.7); Neutrophils % 86.9 % (38.7-73.9); Red Cell Distribution Width 18.7 % (9.3-17.3); White Blood Count 9.7 T/CUMM (4-12)
[2021-07-25 05:19] LABS: Hemoglobin 11.1 GM/DL (12.0-16.0); Red Blood Count 4.84 MC/CUMM (3.8-5.5)
[2021-07-25 05:20] LABS: Platelet Count 339 T/CUMM (130-400)
[2021-07-25 05:24] LABS: Calcium 9.2 MG/DL (8.5-10.1); Osmolality,Calculated 280.1 MOS/KG (273-304); Potassium 3.5 MMOL/L (3.5-5.1)
[2021-07-25] MEDS: PIPERACILLIN/TAZOBACTAM 3,375 MG in SODIUM CHLORIDE 0.9% 100 ML IV SCH ×3 (06:05→20:24)
[2021-07-25] MEDS: busPIRone 15 MG TABLET PO SCH ×2 (08:46→20:24)
[2021-07-25] MEDS: PANTOPRAZOLE 40 MG TABLET PO SCH (08:47)
[2021-07-25] MEDS: THIAMINE 100 MG TABLET PO SCH (08:47)
[2021-07-25] MEDS: amLODIPine 10 MG TABLET PO SCH (08:47)
[2021-07-25] MEDS: FOLIC ACID 1 MG TABLET PO SCH (08:47)
[2021-07-25] MEDS: FUROSEMIDE 40 MG/4 ML VIAL IV SCH (08:52)
[2021-07-25] MEDS: INSULIN GLARGINE 100 UNIT/ML SUBCUT SCH (14:24)
[2021-07-25] MEDS: FUROSEMIDE 40 MG TABLET PO SCH (17:21)
[2021-07-25] MEDS: ROSUVASTATIN 20 MG TABLET PO SCH (20:24)
[2021-07-26] MEDS: ALBUTEROL/IPRATROPIUM 3 ML NEB RESP TX SCH ×2 (00:45→07:20)
[2021-07-26] MEDS: INSULIN REGULAR 100 UNIT/ML SUBCUT SCH ×2 (00:56→05:55)
[2021-07-26] MEDS: methylPREDNISolone SOD SUC 40 MG/1 ML VIAL IV SCH (03:07)
[2021-07-26] MEDS: PIPERACILLIN/TAZOBACTAM 3,375 MG in SODIUM CHLORIDE 0.9% 100 ML IV SCH (03:26)
[2021-07-26 06:41] LABS: Basophils % 0.1 % (0.0-0.8); Eosinophils % 0.1 % (0.00-10.9); Hematocrit 36.6 VOL% (35.7-47.0); Immature Granulocytes % 0.7 %; Immature Granulocytes Absolute 0.07 #; Lymphocytes % 9.2 % (21.3-54.2); Mean Corpuscular HGB Conc 30.1 GM/DL (32-36); Mean Corpuscular Volume 75.5 FL (87-102); Mean Platelet Volume 11.5 FL (9.6-12.0); Monocytes % 4.7 % (1.7-12.7); Neutrophils % 85.2 % (38.7-73.9); Platelet Count 328 T/CUMM (130-400); Red Blood Count 4.85 MC/CUMM (3.8-5.5); Red Cell Distribution Width 18.6 % (9.3-17.3); White Blood Count 10.6 T/CUMM (4-12)
[2021-07-26 07:05] LABS: Calcium 9.5 MG/DL (8.5-10.1); Osmolality,Calculated 278.4 MOS/KG (273-304); Potassium 3.4 MMOL/L (3.5-5.1)
[2021-07-26 08:33] VITALS: BP 128/73
[2021-07-26] MEDS: THIAMINE 100 MG TABLET PO SCH (09:37)
[2021-07-26] MEDS: busPIRone 15 MG TABLET PO SCH (09:37)
[2021-07-26] MEDS: PANTOPRAZOLE 40 MG TABLET PO SCH (09:37)
[2021-07-26] MEDS: amLODIPine 10 MG TABLET PO SCH (09:37)
[2021-07-26] MEDS: FUROSEMIDE 40 MG TABLET PO SCH (09:38)
[2021-07-26] MEDS: FOLIC ACID 1 MG TABLET PO SCH (09:38)
[2021-07-26] MEDS: INSULIN GLARGINE 100 UNIT/ML SUBCUT SCH (09:38)
== END 2021-07-26 11:58 | disposition home or self-care (01) | DRG 139 ==
LOC: N.ED 20:11 → SUATTDRO 07-21 02:54 → N.EDINP 07-21 02:54 → N.TELEN 07-21 21:29
PROVIDERS: ADMIT Internal Medicine; ATTEND Internal Medicine